=== PATIENT | female | born 1940 | race Caucasian/White ===

== ENCOUNTER → 2016-06-03 | Outpatient (CLI) | payer OTHER ==
--- NOTE | 2016-06-03 10:12 | MA ---
Diagnostic Digital Mammogram With iCAD Analysis Clinical Indications: Patient has a history of left breast cancer treated with lumpectomy. Her taniya r was diagnosed with breast cancer in her 40s. The patient has had a benign right breast biopsy. Technique: Standard cephalocaudal projections are obtained. Digital breast tomosynthesis was perform ed in the MLO projection with reconstruction at 1.0 mm slice thickness and composite MLO views recon structed. This examination is processed by the iCAD computer aided detection system. Comparison: April 2015, February 2014, January 2013, December 2011, December 2010, December 0, December 2008. Breast density: Type C: Heterogeneously dense. Findings: CAD was reviewed. Asymmetry at the left breast lumpectomy site is stable. No masses, suspi cious calcifications or secondary signs of malignancy are seen. There has been no significant change in the appearance of either breast. Impression: Benign post lumpectomy mammography, BI-RADS 2. Recommendation: Routine mammographic screening in one year as long as physical examination is negati ve in this patient with heterogeneously dense breast parenchyma. [facility] will send a result letter to the patient. Negative mammography should not preclude additional workup of a clinically suspicious finding. The patient's information is entered into a reminder system with a target due date for her next mamm ogram.
== END ==
LOC: FIMAGING 09:21
DX: R92.8 Other abnormal and inconclusive findings on diagnostic imaging of breast (principal); Z85.3 Personal history of malignant neoplasm of breast; Z80.3 Family history of malignant neoplasm of breast
CPT/HCPCS: G0204; G0279

== ENCOUNTER → 2017-01-25 | Outpatient (CLI) | payer OTHER | LOC: FCPNEURO 20:00 | PROVIDERS: ATTEND Student in an Organized Health Care Education/Training Program | DX: G47.33 Obstructive sleep apnea (adult) (pediatric) (principal) ==

== ENCOUNTER → 2017-09-07 | Outpatient (CLI) | payer OTHER | LOC: FIMAGING 15:49 | PROVIDERS: ATTEND Family Medicine | DX: Z12.31 Encounter for screening mammogram for malignant neoplasm of breast (principal); Z85.3 Personal history of malignant neoplasm of breast; Z80.3 Family history of malignant neoplasm of breast ==

== ENCOUNTER 2017-09-18 14:39 | Emergency (ER) | payer OTHER ==
--- NOTE | 2017-09-18 15:13 | EDPHY ---
H & P Stated Complaint: MECHANICAL FALL, - LOC, SCALP AND NOSE LAC Time Seen by Provider: 09/18/17 15:01 HPI/ROS: CHIEF COMPLAINT: Fall HISTORY OF PRESENT ILLNESS: Patient is a 76-year-old female who states that she missed a step and fell hitting her left forehead on a car. She denies neck or back pain. She denies loss of consciousness. She denies syncope or chest pain or shortness of breath or palpitations. She has a laceration to her left forehead and the bridge of her nose. She also has a history of cervical spine fusion. REVIEW OF SYSTEMS: Constitutional: denies: chills, fever, recent illness, recent injury EENTM: denies: blurred vision, double vision, nose congestion Respiratory: denies: cough, shortness of breath Cardiac: denies: chest pain, irregular heart rate, lightheadedness, palpitations Gastrointestinal/Abdominal: denies: abdominal pain, diarrhea, nausea, vomiting, blood streaked stools Genitourinary: denies: dysuria, frequency, hematuria, pain Musculoskeletal: denies: joint pain, muscle pain Skin: See HPI Neurological: denies: headache, numbness, paresthesia, tingling, dizziness, weakness Hematologic/Lymphatic: denies: blood clots, easy bleeding, easy bruising Immunologic/allergic: denies: HIV/AIDS, transplant EXAM: GENERAL: Well-appearing, well-nourished and in no acute distress. HEAD: Forehead laceration, grossly contaminated, obvious hematoma, no crepitus or deformity. EYES: Pupils equal round and reactive to light, extraocular movements intact, sclera anicteric, conjunctiva are normal. ENT: Nasal bridge laceration less than 1 cm, TMs normal, nares patent, oropharynx clear without exudates. Moist mucous membranes. NECK: No tenderness, Normal range of motion, supple without lymphadenopathy or JVD. LUNGS: Breath sounds clear to auscultation bilaterally and equal. No wheezes rales or rhonchi. HEART: Regular rate and rhythm without murmurs, rubs or gallops. ABDOMEN: Soft, nontender, normoactive bowel sounds. No guarding, no rebound. No masses appreciated. BACK: No CVA tenderness, no spinal tenderness, step-offs or deformities EXTREMITIES: Normal range of motion, no pitting or edema. No clubbing or cyanosis. NEUROLOGICAL: Cranial nerves II through XII grossly intact. Normal speech, normal gait. 5/5 strength, normal movement in all extremities, normal sensation PSYCH: Normal mood, normal affect. SKIN: 3 cm gaping dirty laceration to left forehead Source: Patient Exam Limitations: No limitations - Personal History Current Tetanus Diphtheria and Acellular Pertussis (TDAP): Yes Tetanus Vaccine Date: 2013 - Medical/Surgical History Hx Asthma: No Hx Chronic Respiratory Disease: No Hx Diabetes: No Hx Cardiac Disease: No Hx Renal Disease: No Hx Cirrhosis: No Hx Alcoholism: No Hx HIV/AIDS: No Hx Splenectomy or Spleen Trauma: No Other PMH: orthopedic surgeries, HTN, BREAST CA. L LUMPECTOMY - Family History Significant Family History: No pertinent family hx - Social History Smoking Status: Never smoked Alcohol Use: Sober Drug Use: None Constitutional: Initial Vital Signs Temperature (C) 37.2 C 09/18/17 14:44 Heart Rate 72 09/18/17 14:44 Respiratory Rate 16 09/18/17 14:44 Blood Pressure 178/81 H 09/18/17 14:44 O2 Sat (%) 95 09/18/17 14:44 O2 Delivery Mode Room Air Allergies/Adverse Reactions: No Allergies [NKDA] Allergy (Verified 07/11/09 12:37) bone cement Allergy (Uncoded 09/18/17 14:42) Home Medications: Medication Instructions Recorded Herbals/Supplements -Info Only 1 ea PO DAILY 02/06/15 Atenolol 09/18/17 Lexapro 09/18/17 Lisinopril 09/18/17 Medical Decision Making - Diagnostics Imaging: Discussed imaging studies w/ poly area supervisor Radiologist Procedures: Procedure: Laceration repair. Verbal consent was obtained from the patient. The 3 cm left forehead laceration was anesthetized with 1% lidocaine with epi and bicarbonate locally infiltrated. The wound was irrigated copiously according to protocol, draped and explored to its base. It was approximately 1/2 cm deep. There were no deep structures involved. No tendon, nerve, or vascular injury was identified when explored through full range of motion. Gross contamination was identified prior but not after irrigation. The wound was repaired with a single subcutaneous suture 5.0 Vicryl as well as 6 cutaneous interrupted sutures 6.0 Prolene. The wound repair was moderately complex with multiple layer closure. The procedure was performed by myself. A dressing was then placed with sterile gauze and bacitracin. Procedure: Laceration repair. Verbal consent was obtained from the patient. The 1 cm nasal bridge laceration was anesthetized with 1% lidocaine with epi and bicarbonate locally infiltrated. The wound was irrigated copiously according to protocol, draped and explored to its base. It was approximately 1/2 cm deep. There were no deep structures involved. No tendon, nerve, or vascular injury was identified when explored through full range of motion. No foreign body was identified. The wound was repaired with 6.0 Prolene, a single suture. The wound repair was simple without wound margin revisement or multiple flap alignment. The procedure was performed by myself. A dressing was then placed with sterile gauze and bacitracin. ED Course/Re-evaluation: Head CT ordered in this adult patient for trauma for the following indication: Age and surgical history Patient tolerated wound repair well. She is currently asymptomatic. She is eager to go home. She declines further workup or testing. She is reassured with the CT results. Differential Diagnosis: Partial list of the Differential diagnosis considered include but were not limited to; laceration, head injury, fracture and although unlikely based on the history and physical exam, I also considered syncope, fracture, intracranial. I discussed these differential diagnoses and the plan with the patient as well as the usual and expected course. The patient understands that the diagnosis is provisional and that in medicine we are not always correct and that further workup is often warranted. Usual and customary warnings were given. All of the patient's questions were answered. The patient was instructed to return to the emergency department should the symptoms at all worsen or return, otherwise to followup with the physician as we discussed. Departure - Departure Disposition: Home, Routine, Self-Care Clinical Impression: Facial laceration Qualifiers: Encounter type: initial encounter Qualified Code(s): S01.81XA - Laceration without foreign body of other part of head, initial encounter Condition: Fair Instructions: Laceration (ED) Additional Instructions: Have your stitches removed in 7 days. Referrals: NONE *PRIMARY CARE P,. [Primary Care Provider] - As per Instructions
[2017-09-18 16:41] VITALS: BP 136/77
== END 2017-09-18 16:38 | disposition home or self-care (01) ==
PROC: 0HQ1XZZ Repair Face Skin, External Approach (ICD-10-PCS; principal; 2017-09-18)
PROC: 09QKXZZ Repair Nasal Mucosa and Soft Tissue, External Approach (ICD-10-PCS; 2017-09-18)
DX: S01.21XA Laceration without foreign body of nose, initial encounter (principal); I10 Essential (primary) hypertension; S01.81XA Laceration without foreign body of other part of head, initial encounter; Z85.3 Personal history of malignant neoplasm of breast; W10.8XXA Fall (on) (from) other stairs and steps, initial encounter; Y99.8 Other external cause status

== ENCOUNTER → 2017-09-25 | Outpatient (CLI) | payer OTHER | LOC: FIMAGING 09:09 | PROVIDERS: ATTEND Family Medicine | DX: K76.89 Other specified diseases of liver (principal); I70.0 Atherosclerosis of aorta ==

== ENCOUNTER → 2017-10-07 | Outpatient (CLI) | payer OTHER ==
[~2017-10-07] MED LIST: BUPIVACAINE 0.5% 10 ML SDV ONE; LIDOCAINE 1% 300 MG/30 ML SDV ONE; THROMBIN (BOVINE) 5,000 UNIT VIAL TP ONE
== END ==
LOC: FIMAGING 07:17
PROVIDERS: ATTEND Family Medicine
PROC: 0HBU3ZX Excision of Left Breast, Percutaneous Approach, Diagnostic (ICD-10-PCS; principal; 2017-10-07)
DX: N64.89 Other specified disorders of breast (principal)

== ENCOUNTER → 2018-03-20 | Outpatient (CLI) | payer OTHER | LOC: FIMAGING 09:45 | PROVIDERS: ATTEND Family Medicine | DX: M23.91 Unspecified internal derangement of right knee (principal); M22.41 Chondromalacia patellae, right knee ==

== ENCOUNTER → 2018-04-05 | Outpatient (CLI) | payer OTHER ==
[~2018-04-05] MED LIST changes: -BUPIVACAINE 0.5% 10 ML SDV ONE; +IOPAMIDOL (ISOVUE-300) 100 ML BTL ONE; -LIDOCAINE 1% 300 MG/30 ML SDV ONE; -THROMBIN (BOVINE) 5,000 UNIT VIAL TP ONE
== END ==
LOC: FIMAGING 09:07
PROVIDERS: ATTEND Family Medicine
DX: D12.0 Benign neoplasm of cecum (principal); R93.41 Abnormal radiologic findings on diagnostic imaging of renal pelvis, ureter, or bladder; R11.10 Vomiting, unspecified
CPT/HCPCS: 71260; 74177; Q9967; 82565-PO

== ENCOUNTER → 2018-04-09 | Outpatient (CLI) | payer OTHER | LOC: FIMAGING 11:52 | PROVIDERS: ATTEND Family Medicine | DX: R93.89 Abnormal findings on diagnostic imaging of other specified body structures (principal); N32.9 Bladder disorder, unspecified; Z80.41 Family history of malignant neoplasm of ovary ==

== ENCOUNTER 2018-05-08 09:48 | Inpatient (IN) | payer OTHER ==
--- NOTE | 2018-05-08 10:13 | EDPHY ---
H & P Stated Complaint: SOB Time Seen by Provider: 05/08/18 10:00 HPI/ROS: CHIEF COMPLAINT: Shortness of breath HISTORY OF PRESENT ILLNESS: The patient is a 77-year-old female he denies any history of cardiac or pulmonary disease other than hypertension. She comes to the emergency department complaining of shortness of breath increasing over the last 3 days. She does also noticed some swelling in both legs. No fever or cough. No runny nose or sore throat. No chest pain. No recent travel. She was saturating 75% on room air triage. Severity: Moderate Modifying factors: None REVIEW OF SYSTEMS: Constitutional: denies: chills, fever, recent illness, recent injury EENTM: denies: blurred vision, double vision, nose congestion Respiratory: See HPI Cardiac: denies: chest pain, irregular heart rate, lightheadedness, palpitations Gastrointestinal/Abdominal: denies: abdominal pain, diarrhea, nausea, vomiting, blood streaked stools Genitourinary: denies: dysuria, frequency, hematuria, pain Musculoskeletal: denies: joint pain, muscle pain Skin: denies: lesions, rash, jaundice, bruising Neurological: denies: headache, numbness, paresthesia, tingling, dizziness, weakness Hematologic/Lymphatic: denies: blood clots, easy bleeding, easy bruising Immunologic/allergic: denies: HIV/AIDS, transplant 10 systems reviewed and negative except as noted EXAM: GENERAL: Well-appearing, well-nourished and in no acute distress. HEAD: Atraumatic, normocephalic. EYES: Pupils equal round and reactive to light, extraocular movements intact, sclera anicteric, conjunctiva are normal. ENT: TMs normal, nares patent, oropharynx clear without exudates. Moist mucous membranes. NECK: Normal range of motion, supple without lymphadenopathy or JVD. LUNGS: Bilateral lower lobe rhonchi HEART: Regular rate and rhythm without murmurs, rubs or gallops. ABDOMEN: Soft, nontender, normoactive bowel sounds. No guarding, no rebound. No masses appreciated. BACK: No CVA tenderness, no spinal tenderness, step-offs or deformities EXTREMITIES: 2+ pitting edema bilateral lower extremities, NEUROLOGICAL: Cranial nerves II through XII grossly intact. Normal speech, normal gait. 5/5 strength, normal movement in all extremities, normal sensation , normal reflexes PSYCH: Normal mood, normal affect. SKIN: Warm, dry, normal turgor, no visible rashes or lesions. Source: Patient Exam Limitations: No limitations - Personal History Current Tetanus/Diphtheria Vaccine: Yes Tetanus Vaccine Date: 2013 - Medical/Surgical History Hx Asthma: No Hx Chronic Respiratory Disease: No Hx Diabetes: No Hx Cardiac Disease: No Hx Renal Disease: No Hx Cirrhosis: No Hx Alcoholism: No Hx HIV/AIDS: No Hx Splenectomy or Spleen Trauma: No Other PMH: orthopedic surgeries, HTN, BREAST CA. L LUMPECTOMY - Family History Significant Family History: No pertinent family hx - Social History Smoking Status: Never smoked Alcohol Use: None Constitutional: Initial Vital Signs Temperature (C) 36.3 C 05/08/18 09:51 Heart Rate 78 05/08/18 09:51 Respiratory Rate 18 05/08/18 09:51 Blood Pressure 137/58 H 05/08/18 09:51 O2 Sat (%) 75 L 05/08/18 09:51 O2 Delivery Mode Room Air O2 (L/minute) 4 Allergies/Adverse Reactions: ibuprofen [From Motrin] Allergy (Verified 05/08/18 11:25) bone cement Allergy (Uncoded 09/18/17 14:42) Home Medications: Medication Instructions Recorded Acetaminophen/ASA/Caffeine 1 each PO DAILY PRN 05/08/18 [Excedrin Tablet (*)] Atenolol [Tenormin 25 mg (*)] 25 mg PO DAILY 05/08/18 Escitalopram Oxalate [Lexapro] 10 mg PO DAILY 05/08/18 Fluticasone Nasal [Flonase Nasal 1 sprays NASAL DAILY PRN 05/08/18 [place] (RX)] Herbals/Supplements -Info Only 1 ea PO DAILY 05/08/18 Hydrocodone/APAP 5/325 [[place] 1 - 2 tab PO BID PRN 05/08/18 5/325 (*)] Ibandronate Sodium [Boniva] 150 mg PO Q30D 05/08/18 Lisinopril [Zestril 10 mg (*)] 10 mg PO DAILY 05/08/18 NIFEdipine ER [Adalat CC 30 mg (*)] 30 mg PO DAILY 05/08/18 Medical Decision Making - Diagnostics EKG Interpretation: An EKG obtained and was read and documented in trace view. Please see trace view for full reading and report. Sinus rhythm, no acute ischemic changes Imaging: Discussed imaging studies w/ body recall instructor Radiologist ED Course/Re-evaluation: The patient appears to be fluid overloaded. I do not think that she has an infection and therefore will not treat with fluids even though she has an elevated lactate. I will treat with Lasix for now. I have discussed this with Dr. Ojeda who agrees with this plan. Will admit to the PCU. Differential Diagnosis: Partial list of the Differential diagnosis considered include but were not limited to; pleural effusions, pulmonary edema, and although unlikely based on the history and physical exam, I also considered acute coronary disease, pneumonia, PE, dissection. - Data Points Laboratory Results: Laboratory Results 05/08/18 10:16 05/08/18 10:16 Microbiology Results: MICROBIOLOGY 05/08/18 10:16 Blood Blood Culture - Preliminary Medications Given: Hydrocodone Bitart/Acetaminophen ([place] 5/325) 1 - 2 tab PO BID PRN; Protocol PRN Reason: Pain, Moderate Stop: 05/18/18 12:56 Last Admin: 05/10/18 20:07 Dose: 2 tab Enoxaparin Sodium (Lovenox) 40 mg SC DAILY MADHU Stop: 11/05/18 10:29 Last Admin: 05/09/18 11:27 Dose: 40 mg Escitalopram Oxalate (Lexapro) 10 mg PO DAILY MADHU Stop: 11/05/18 08:59 Last Admin: 05/10/18 09:39 Dose: 10 mg Ferrous Sulfate (Ferrous Sulfate) 325 mg PO DAILY MADHU Stop: 11/05/18 10:29 Last Admin: 05/10/18 09:38 Dose: 325 mg Fluticasone Propionate (Flonase Nasal [place]) 1 sprays EACHNARE DAILY PRN PRN Reason: ALLERGIES Stop: 11/04/18 12:56 Last Admin: 05/09/18 12:41 Dose: 1 sprays Furosemide (Lasix Injection) 40 mg IVP DAILY MADHU Stop: 11/06/18 08:59 Last Admin: 05/10/18 09:37 Dose: 40 mg Lisinopril (Zestril) 10 mg PO DAILY MADHU Stop: 11/05/18 08:59 Last Admin: 05/10/18 09:38 Dose: 10 mg Metoprolol Tartrate (Lopressor) 12.5 mg PO BID MADHU Stop: 11/04/18 20:59 Last Admin: 05/10/18 20:04 Dose: 12.5 mg Ondansetron HCl (Zofran) 4 mg IVP Q4HRS PRN PRN Reason: Nausea/Vomiting, Can't Take PO Stop: 11/05/18 12:43 Last Admin: 05/09/18 12:52 Dose: 4 mg Pantoprazole Sodium (Protonix) 40 mg PO DAILY [facility] Stop: 11/06/18 09:14 Last Admin: 05/10/18 09:42 Dose: 40 mg Discontinued Medications Aspirin (Aspirin) 325 mg PO ONCE ONE Stop: 05/08/18 12:42 Last Admin: 05/08/18 13:47 Dose: 325 mg Diazepam (Valium) 5 mg PO ONCALL ONE Stop: 05/10/18 06:01 Last Admin: 05/10/18 15:55 Dose: Not Given Diphenhydramine HCl (Benadryl) 25 mg PO ONCALL ONE Stop: 05/10/18 06:01 Last Admin: 05/10/18 15:55 Dose: Not Given Furosemide (Lasix Injection) 40 mg IVP EDNOW ONE Stop: 05/08/18 10:44 Last Admin: 05/08/18 10:47 Dose: 40 mg Furosemide (Lasix Injection) 40 mg IVP BID [facility] Stop: 11/05/18 08:59 Last Admin: 05/09/18 09:10 Dose: 40 mg Potassium Chloride (Klor-Con) 10 - 40 meq PO ONCE ONE PRN Reason: Protocol Stop: 05/10/18 09:24 Last Admin: 05/10/18 09:37 Dose: 10 meq Point of Care Test Results: Chemistry 05/08/18 10:19 POC Troponin I 0.01 ng/mL ng/mL (0.00-0.08) Departure - Departure Disposition: [facility] Acute Clinical Impression: Pleural effusion, Lower extremity edema Condition: Fair
--- NOTE | 2018-05-08 10:14 | CPEKG ---
Test Reason : OPEN Blood Pressure : / mmHG Vent. Rate : 076 BPM Atrial Rate : 076 BPM P-R Int : 109 ms QRS Dur : 082 ms QT Int : 440 ms P-R-T Axes : 065 054 048 degrees QTc Int : 495 ms Sinus rhythm Confirmed by Dae Pineda ([id number]) on 05/08/2018 10:13:44 AM Referred By: Confirmed By:Dae Pineda
[2018-05-08 10:31] LABS: PLATELET COUNT 519 10^3/uL (150-400)
[2018-05-08 10:41] LABS: INR 1.04 (0.83-1.16); PROTIME(PATIENT) 13.8 SEC (12.0-15.0)
[2018-05-08] MEDS ORDERED: FUROSEMIDE 40 MG/4 ML VIAL IVP ONE (10:43)
[2018-05-08] MEDS ORDERED: IOPAMIDOL (ISOVUE 370) 100 ML BTL IV ONE (10:55)
[2018-05-08] MEDS ORDERED: ASPIRIN 325 MG TAB PO ONE (12:41)
[2018-05-08] MEDS ORDERED: PROTOCOL POTASSIUM 1 DOSE MISC PRN (12:43)
--- NOTE | 2018-05-08 13:09 | PDGENHP ---
History and Physical - Chief Complaint SOB - History of Present Illness 77 yo female with h/o hypertension, depression, and orthopedic issues presents with 2-3 days of worsening SOB and BRANNON. She noticed this a few days ago going up stairs. She vaguely endorses orthopnea, denies PND. Thinks she may have some mild lower extremity. She denies any history of cardiac or pulmonary issues. No recent travel or surgery. Denies cough, fevers or infectious symptoms. She has recently been evaluated by her PCP for abdominal discomfort, including nausea and vomiting. She is a lifetime non-smoker. Her father had a SD in his 50's. She is not diabetic. In the ED, her O2 sat was 75% on room air. BNP and d dimer were elevated. CTA was negative for PE, but she has b/l pleural effusions. She was given 40 mg IV Lasix and is admitted to the hospital for further management. History Information - Allergies/Home Medication List Allergies/Adverse Reactions: ibuprofen [From Motrin] Allergy (Verified 05/08/18 11:25) bone cement Allergy (Uncoded 09/18/17 14:42) Home Medications: Acetaminophen/ASA/Caffeine [Excedrin Tablet (*)] 1 each PO DAILY PRN 05/08/18 [ Last Taken Unknown] Atenolol [Tenormin 25 mg (*)] 25 mg PO DAILY 05/08/18 [Last Taken 05/08/18] Escitalopram Oxalate [Lexapro] 10 mg PO DAILY 05/08/18 [Last Taken 05/08/18] Fluticasone Nasal [Flonase Nasal [place] (RX)] 1 sprays NASAL DAILY PRN 05/08/18 [ Last Taken Unknown] Herbals/Supplements -Info Only 1 ea PO DAILY 05/08/18 [Last Taken Unknown] Hydrocodone/APAP 5/325 [[place] 5/325 (*)] 1 - 2 tab PO BID PRN 05/08/18 [Last Taken Unknown] Ibandronate Sodium [Boniva] 150 mg PO Q30D 05/08/18 [Last Taken 04/08/18] Lisinopril [Zestril 10 mg (*)] 10 mg PO DAILY 05/08/18 [Last Taken 05/08/18] NIFEdipine ER [Adalat CC 30 mg (*)] 30 mg PO DAILY 05/08/18 [Last Taken 05/08/18 ] I have personally reviewed and updated: family history, medical history, social history, surgical history - Past Medical History hypertension Additional medical history: Depression. 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 Lives alone, independent. Review of Systems Review of Systems: ROS: 10pt was reviewed & negative except for what was stated in HPI & below Physical Exam Physical Exam: Temp Pulse Resp BP Pulse Ox 37.1 C 67 19 148/79 H 96 05/08/18 12:07 05/08/18 12:07 05/08/18 12:07 05/08/18 12:07 05/08/18 12:07 O2 (L/minute) 4 Constitutional: no apparent distress Eyes: PERRL Ears, Nose, Mouth, Throat: moist mucous membranes Cardiovascular: regular rate and rhythym, JVD Respiratory: no respiratory distress, reduced air movement, inspiratory crackles Gastrointestinal: normoactive bowel sounds, soft, non-tender abdomen Skin: warm Musculoskeletal: full muscle strength, other (1+ b/l LE edema) Neurologic: AAOx3 Psychiatric: interacting appropriately Lab Data & Imaging Review 05/08/18 10:16 05/08/18 14:57 WBC 8.41 10^3/uL (3.80-9.50) 05/08/18 10:16 RBC 3.63 10^6/uL (4.18-5.33) L 05/08/18 10:16 Hgb 9.4 g/dL (12.6-16.3) L 05/08/18 10:16 Hct 30.9 % (38.0-47.0) L 05/08/18 10:16 MCV 85.1 fL (81.5-99.8) 05/08/18 10:16 MCH 25.9 pg (27.9-34.1) L 05/08/18 10:16 MCHC 30.4 g/dL (32.4-36.7) L 05/08/18 10:16 RDW 14.5 % (11.5-15.2) 05/08/18 10:16 Plt Count 519 10^3/uL (150-400) H 05/08/18 10:16 MPV 8.9 fL (8.7-11.7) 05/08/18 10:16 Neut % (Auto) 69.7 % (39.3-74.2) 05/08/18 10:16 Lymph % (Auto) 14.0 % (15.0-45.0) L 05/08/18 10:16 [place] % (Auto) 12.1 % (4.5-13.0) 05/08/18 10:16 Eos % (Auto) 3.0 % (0.6-7.6) 05/08/18 10:16 Baso % (Auto) 0.8 % (0.3-1.7) 05/08/18 10:16 Nucleat RBC Rel Count 0.2 % (0.0-0.2) 05/08/18 10:16 Absolute Neuts (auto) 5.86 10^3/uL (1.70-6.50) 05/08/18 10:16 Absolute Lymphs (auto) 1.18 10^3/uL (1.00-3.00) 05/08/18 10:16 Absolute Monos (auto) 1.02 10^3/uL (0.30-0.80) H 05/08/18 10:16 Absolute Eos (auto) 0.25 10^3/uL (0.03-0.40) 05/08/18 10:16 Absolute Basos (auto) 0.07 10^3/uL (0.02-0.10) 05/08/18 10:16 Absolute Nucleated RBC 0.02 10^3/uL (0-0.01) H 05/08/18 10:16 Immature Gran % 0.4 % (0.0-1.1) 05/08/18 10:16 Immature Gran # 0.03 10^3/uL (0.00-0.10) 05/08/18 10:16 PT 13.8 SEC (12.0-15.0) 05/08/18 10:16 INR 1.04 (0.83-1.16) 05/08/18 10:16 APTT 24.6 SEC (23.0-38.0) 05/08/18 10:16 D-Dimer 1.57 ug/mLFEU (0.00-0.50) H 05/08/18 10:16 VBG Lactic Acid 3.9 mmol/L (0.7-2.1) H 05/08/18 10:16 Sodium 140 mEq/L (135-145) 05/08/18 10:16 Potassium 4.3 mEq/L (3.5-5.2) 05/08/18 10:16 Chloride 110 mEq/L (97-110) 05/08/18 10:16 Carbon Dioxide 19 mEq/l (22-31) L 05/08/18 10:16 Anion Gap 11 mEq/L (6-14) 05/08/18 10:16 BUN 27 mg/dL (7-23) H 05/08/18 10:16 Creatinine 0.9 mg/dL (0.6-1.0) 05/08/18 10:16 Estimated GFR > 60 05/08/18 10:16 Glucose 83 mg/dL (70-100) 05/08/18 10:16 Calcium 9.8 mg/dL (8.5-10.4) 05/08/18 10:16 POC Troponin I 0.01 ng/mL (0.00-0.08) 05/08/18 10:19 NT-Pro-B Natriuret Pep 3360 pg/mL (0-450) H 05/08/18 10:16 Procalcitonin 0.10 ng/mL (0.02-0.10) 05/08/18 10:16 Visualized and Interpreted Chest x-ray results: Yes Chest X-Ray results: other (bibasilar effusions) EKG Interpretation: Positive for: normal sinsus rhythm, T waves inversion Assessment & Plan Assessment: Acute hypoxemic respiratory failure - on 4 LPM, s/p IV Lasix for presumed acute heart failure with elevated BNP, JVD and orthopnea. Initial trop neg, but EKG abnormal with T wave inversions in anterior leads. She is afebrile, no cough, nl wbc's, PCT neg, thus doubt pna. -echo now to eval for WMA and LV function -cont IV lasix with K protocol -prn ekg for CP or change in status -trend trop -discussed with cards, likely warrants further ischemic eval (stress test vs cath, await echo and f/u trop) Acute heart failure - s/p lasix, echo pending -cont diuresis, follow I&O's, daily weights -f/u echo -check TSH Lactic acidosis - does not present with sepsis picture Normocytic anemia - prior hgb was nl -send iron studies, heme stool (outpt c-scope if pos) Full code DVT PPLX - SCD's for now, likely start Lovenox if no procedure needed (await echo and f/u trop) Dispo - admit to inpt, anticipate >48 hrs hospitalization for ongoing management of hypoxemia and acute heart failure
--- NOTE | 2018-05-08 19:49 | ECHO ---
[email or web address] [address] [address] Main: [phone] Fax: Transthoracic Echocardiogram Name: MICHELLE THAO MR#: [id number] Study Date: 05/08/2018 Study Time: 01:04 PM Date of : 1940 Age: 77 year(s) Height: 152.4 cm (60 in.) Weight: 58.97 kg (130 lb.) BSA: 1.55 m2 Gender: Female Examination: Indication: Shortness of breath Image Quality: Contrast: Requested by: Sara Wasserman BP: / Heart Rate: Rhythm: Normal sinus rhythm Indication: Shortness of breath Procedure Staff Radiation Monitor: Yovanny Cadet RDCS Reading Physician: Gold Pillai MD Requesting Provider: Conclusions: Normal size left ventricle. No LV hypertrophy. Normal global systolic LV function. EF is 63 %. Grade 1 diastolic dysfunction (abnormal relaxation). Normal size right ventricle. The left atrium is mildly dilated. The right atrium is mildly dilated. Mild mitral valve regurgitation is present. The aortic valve is tri-leaflet. There is no significant aortic valve regurgitation. The tricuspid valve appears normal. Moderate to severe tricuspid valve regurgitation. Right ventricular systolic pressure measures 80mmHg. The pulmonic valve is normal in appearance and function. No pericardial effusion. Measurements: Chambers Valvular Assessment AV/MV Valvular Assessment TV/PV Normal Normal Normal Name Value Range Name Value Range Name Value Range Ao Summer (MM): 2.4 cm (2.2 cm-3.7 AV Vmax: 1.07 m/s (1 m/s-1.7 TR Vmax: 4.33 mm/s ( - ) cm) m/s) TR PGmax: 75 mmHg ( - ) IVSd (2D): 0.8 cm (0.6 cm-1.1 AV maxP mmHg ( - ) syst. PAP: 80 mmHg ( - ) cm) LVOT Vmax: 0.93 m/s (0.7 m/s-1.1 PV Vmax: 0.81 m/s (0.6 m/s-0.9 LVDd (2D): 4.1 cm (3.9 cm-5.3 m/s) m/s) cm) MV E Vmax: 1.05 m/s ( - ) PV PGmax: 3 mmHg ( - ) LVDs (2D): 2.7 cm (2.1 cm-4 MV A Vmax: 0.54 m/s ( - ) cm) MV E/A: 1.94 ( - ) LVPWd (2D): 0.9 cm ( - ) Patient: MICHELLE THAO Study Date: 05/08/2018 Page 1 of 2 01:04 PM LVEF (2D): 63 (>=54 %) Continued Measurements: Chambers Valvular Assessment AV/MV Valvular Assessment TV/PV Name Value Name Value Name Value LADs Lon.4 cm MV E' Septal: 0.05 m/s CVP (est.): 5 mmHg LA Area: 20.7 cm2 MV E/E' Septal: 22.00 LA Volume: 60 ml MV E/E' Lateral: 14.70 LA Volume Index: 38.7 ml/m2 Findings: Left Ventricle: Normal size left ventricle. No LV hypertrophy. Normal global systolic LV function. EF is 63 %. No regional wall motion abnormality. Grade 1 diastolic dysfunction (abnormal relaxation). Right Ventricle: Normal size right ventricle. Normal RV function. Left Atrium: The left atrium is mildly dilated. Right Atrium: The right atrium is mildly dilated. Mitral Valve: The mitral valve is normal in appearance. Mild mitral valve regurgitation is present. Aortic Valve: The aortic valve is tri-leaflet. There is no significant aortic valve regurgitation. Tricuspid Valve: The tricuspid valve appears normal. Moderate to severe tricuspid valve regurgitation. The pulmonary artery pressure is severely increased. Right ventricular systolic pressure measures 80mmHg. Pulmonic Valve: The pulmonic valve is normal in appearance and function. Aorta: The aorta is normal. Pericardium: No pericardial effusion. (No Signature Object) Patient: MICHELLE HTAO Study Date: 05/08/2018 Page 2 of 2 01:04 PM [id number]
[2018-05-08] MEDS: HYDROCODONE/APAP 5/325 TAB PO PRN (21:14)
[2018-05-08] MEDS: METOPROLOL TARTRATE 25 MG TAB PO SCH (21:17)
--- NOTE | 2018-05-09 07:18 | HOSPPROG ---
Hospitalist Progress Note Assessment/Plan: Acute hypoxemic respiratory failure - 4 LPM. Echo reviewed: RVSP 80 with mod- severe TR and grade 1 Parsons dysfunction. Initial trop neg, but EKG abnormal with T wave inversions in anterior leads. She is afebrile, no cough, nl wbc's, PCT neg, thus doubt pna. -cont diuresis as below with K protocol -wean O2 as able Right heart failure in setting of severe pulmonary hypertension and b/l pleural effusions - net neg 2 L overnight. CTA neg for PE. -cont IV Lasix, increase to 40 mg IV bid -follow I&O's, daily weights -cardiology consult -check LFT's, HIV, JJ for further evaluation of pulm htn, likely warrants heart cath (discussed with dr. stephens) Mod-severe TR - in setting of pulm htn and heart failure Lactic acidosis - does not present with sepsis picture, lactate down to 2.2 on repeat Normocytic anemia - prior hgb was nl, serum Fe and %sat low -start oral iron, outpt c-scope as below Colon polyp - seen on recent outpt CT -outpt colonoscopy is planned Full code DVT PPLX - Lovenox today, hold in am for possible cardiac intervention Dispo - cont inpt Subjective: Pt feels better. Breathing is improved. Denies CP. No cough or fevers. Taking po well. Objective: Vital Signs Temp Pulse Resp BP Pulse Ox 36.6 C 71 20 126/74 H 92 05/09/18 03:47 05/09/18 03:47 05/09/18 03:47 05/09/18 03:47 05/09/18 03:47 Laboratory Results 05/09/18 03:44 05/09/18 03:44 05/08/18 05/09/18 05/10/18 05:59 05:59 05:59 Intake Total 750 Output Total 2550 Balance -1800 PT 13.8 SEC (12.0-15.0) 05/08/18 10:16 INR 1.04 (0.83-1.16) 05/08/18 10:16 - Physical Exam Constitutional: no apparent distress Eyes: PERRL Ears, Nose, Mouth, Throat: moist mucous membranes Cardiovascular: regular rate and rhythym Respiratory: no respiratory distress, reduced air movement, inspiratory crackles Gastrointestinal: normoactive bowel sounds, soft, non-tender abdomen Skin: warm Musculoskeletal: full muscle strength Neurologic: AAOx3 Psychiatric: interacting appropriately ICD10 Worksheet Patient Problems: Problems Problem Status Onset Lower extremity edema Acute Pleural effusion Acute Arthrodesis status Acute Cervical radiculitis Acute Depression Acute Facial laceration Acute Hypertension Acute Neck pain Acute Tremor Acute Unsteady gait Acute
[2018-05-09] MEDS ORDERED: FUROSEMIDE 40 MG/4 ML VIAL IVP SCH ×2 (09:00)
[2018-05-09] MEDS: METOPROLOL TARTRATE 25 MG TAB PO SCH ×2 (09:10→20:13)
[2018-05-09] MEDS: ESCITALOPRAM OXALATE 10 MG TAB PO SCH (09:10)
[2018-05-09] MEDS: LISINOPRIL 10 MG TAB PO SCH (09:10)
--- NOTE | 2018-05-09 09:23 | PDMN ---
Medical Necessity Medical necessity: Pt meets IP criteria as of 05/08/2018 per and MCG M-190 ( Heart Failure); est los > 2 mn for ongoing tx and management of acute heart failure with acute hypoxemic respiratory failure and EKG changes; requiring IV diuretics, new oxygen demand, cardiology consultation and further workup to r/o ischemia.
[2018-05-09] MEDS: FERROUS SULFATE 325 MG TAB PO SCH (11:27)
[2018-05-09] MEDS: ENOXAPARIN 40 MG/0.4 ML SYR SC SCH (11:27)
--- NOTE | 2018-05-09 11:45 | PDCARCONS ---
Cardiology Consult Reason for Consult: New onset congestive heart failure, evidence of pulmonary hypertension on echocardiography. Chief Complaint: Dyspnea, fatigue. Requesting Physician: Dr. Sara Wasserman. History of Present Illness: This is a pleasant 77-year-old female seen in consultation on the progressive care unit. 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 At her baseline she is fairly healthy. She has no history of either cardiac or pulmonary disease. She states that she generally feels well and lives independently caring for herself. She has had a difficult time over the last 2 or 3 months with symptoms of chronic nausea and occasional vomiting. This has been worked up with no clear cut etiology identified as of yet. She also states that over the last 48-72 hours she has developed symptoms of progressive exertional dyspnea, lower extremity edema and fatigue. This has not been associated with chest discomfort, orthopnea or PND. She also denies fever, chills and sweats. She gives no history of a cough. Because of these symptoms she came to the emergency department yesterday. On arrival she was hemodynamically stable. She was profoundly hypoxemic on arrival with sats of 75 % on room air. Her chest x-ray indicated bilateral small to moderate sized pleural effusions. Because of an elevated D-dimer she had a CTA of the chest. I reviewed this personally with the radiologist. Again noted were moderate sized bilateral pleural effusions, evidence of enlarged main and branch pulmonary arteries and a generous right heart. There was no indication of PE. Overnight she has received IV diuretics. She states that she feels much better. She notes that her lower extremity swelling has resolved. She is much more comfortable with respect to her respiratory status following diuretic therapy and the administration of oxygen. In talking to her about this, she has not had a cough in the past. She gives no history of DVT or PE. She is a lifelong nonsmoker with no history of pulmonary disease. She does have obstructive sleep apnea which she states is mild. She uses her CPAP only occasionally as it is uncomfortable. She has no history of lupus or scleroderma. She gives no history of weight loss. She has described a sensation of nausea and vomiting over the last 2-3 months. History Information - Allergies/Home Medication List Allergies/Adverse Reactions: ibuprofen [From Motrin] Allergy (Verified 05/08/18 11:25) bone cement Allergy (Uncoded 09/18/17 14:42) Home Medications: Acetaminophen/ASA/Caffeine [Excedrin Tablet (*)] 1 each PO DAILY PRN 05/08/18 [ Last Taken Unknown] Atenolol [Tenormin 25 mg (*)] 25 mg PO DAILY 05/08/18 [Last Taken 05/08/18] Escitalopram Oxalate [Lexapro] 10 mg PO DAILY 05/08/18 [Last Taken 05/08/18] Fluticasone Nasal [Flonase Nasal [place] (RX)] 1 sprays NASAL DAILY PRN 05/08/18 [ Last Taken Unknown] Herbals/Supplements -Info Only 1 ea PO DAILY 05/08/18 [Last Taken Unknown] Hydrocodone/APAP 5/325 [[place] 5/325 (*)] 1 - 2 tab PO BID PRN 05/08/18 [Last Taken Unknown] Ibandronate Sodium [Boniva] 150 mg PO Q30D 05/08/18 [Last Taken 04/08/18] Lisinopril [Zestril 10 mg (*)] 10 mg PO DAILY 05/08/18 [Last Taken 05/08/18] NIFEdipine ER [Adalat CC 30 mg (*)] 30 mg PO DAILY 05/08/18 [Last Taken 05/08/18 ] Past Medical History: Breast cancer. This was diagnosed about 10 years ago. She is status post a left-sided lumpectomy with placement of radioactive seeds. Osteoarthritis. She has had multiple orthopedic surgeries over the past many years. Systemic hypertension. - Surgical History Additional surgical history: Lumpectomy for breast cancer, synovial cyst resection, C2-T2 spinal fusion, 6 previous shoulder surgeries, knee arthroscopy. - Family History Positive for: non-pertinent - Social History Smoking Status: Never smoked Alcohol Use: Other (She used to drink fairly have Ali) Drug Use: None Additional social history: She is . She is originally from [place]. She has 2 children that live in the local area here. She lives independently. 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 Physical Exam Physical Exam: Temp Pulse Resp BP Pulse Ox 36.4 C 68 13 123/63 H 94 05/09/18 11:19 05/09/18 11:19 05/09/18 11:19 05/09/18 11:19 05/09/18 11:19 O2 (L/minute) 4 Constitutional: no apparent distress, not in pain, other (She is thin and chronically ill in appearance) Eyes: PERRL, anicteric sclera, EOMI Ears, Nose, Mouth, Throat: moist mucous membranes, hearing normal, ears appear normal, no oral mucosal ulcers Cardiovascular: regular rate and rhythym, no murmur, rub, or gallop, edema, other (She has trace bilateral lower extremity edema) Peripheral Pulses: 2+: carotid (R), carotid (L) Respiratory: no respiratory distress, no rales or rhonchi, other (Decreased breath sounds are noted in both bases) Gastrointestinal: normoactive bowel sounds, soft, non-tender abdomen, no palpable masses Genitourinary: no bladder fullness, no bladder tenderness Skin: warm, normal color, no rashes or abrasions, no fluctuance, no induration, No mottled Musculoskeletal: full muscle strength, no muscle tenderness, normal joint ROM, no joint effusions Psychiatric: interacting appropriately, not anxious, not encephalopathic, thought process linear Lymph, Heme, Immunologic: no cervical LAD, no supraclavicular LAD Lab and Imaging 05/09/18 03:44 05/09/18 03:44 WBC 8.41 10^3/uL (3.80-9.50) 05/08/18 10:16 RBC 3.63 10^6/uL (4.18-5.33) L 05/08/18 10:16 Hgb 8.9 g/dL (12.6-16.3) L 05/09/18 03:44 Hct 29.4 % (38.0-47.0) L 05/09/18 03:44 MCV 85.1 fL (81.5-99.8) 05/08/18 10:16 MCH 25.9 pg (27.9-34.1) L 05/08/18 10:16 MCHC 30.4 g/dL (32.4-36.7) L 05/08/18 10:16 RDW 14.5 % (11.5-15.2) 05/08/18 10:16 Plt Count 519 10^3/uL (150-400) H 05/08/18 10:16 MPV 8.9 fL (8.7-11.7) 05/08/18 10:16 Neut % (Auto) 69.7 % (39.3-74.2) 05/08/18 10:16 Lymph % (Auto) 14.0 % (15.0-45.0) L 05/08/18 10:16 [place] % (Auto) 12.1 % (4.5-13.0) 05/08/18 10:16 Eos % (Auto) 3.0 % (0.6-7.6) 05/08/18 10:16 Baso % (Auto) 0.8 % (0.3-1.7) 05/08/18 10:16 Nucleat RBC Rel Count 0.2 % (0.0-0.2) 05/08/18 10:16 Absolute Neuts (auto) 5.86 10^3/uL (1.70-6.50) 05/08/18 10:16 Absolute Lymphs (auto) 1.18 10^3/uL (1.00-3.00) 05/08/18 10:16 Absolute Monos (auto) 1.02 10^3/uL (0.30-0.80) H 05/08/18 10:16 Absolute Eos (auto) 0.25 10^3/uL (0.03-0.40) 05/08/18 10:16 Absolute Basos (auto) 0.07 10^3/uL (0.02-0.10) 05/08/18 10:16 Absolute Nucleated RBC 0.02 10^3/uL (0-0.01) H 05/08/18 10:16 Immature Gran % 0.4 % (0.0-1.1) 05/08/18 10:16 Immature Gran # 0.03 10^3/uL (0.00-0.10) 05/08/18 10:16 PT 13.8 SEC (12.0-15.0) 05/08/18 10:16 INR 1.04 (0.83-1.16) 05/08/18 10:16 APTT 24.6 SEC (23.0-38.0) 05/08/18 10:16 D-Dimer 1.57 ug/mLFEU (0.00-0.50) H 05/08/18 10:16 VBG Lactic Acid 2.2 mmol/L (0.7-2.1) H 05/08/18 14:57 Sodium 140 mEq/L (135-145) 05/09/18 03:44 Potassium 4.3 mEq/L (3.5-5.2) 05/09/18 03:44 Chloride 109 mEq/L (97-110) 05/09/18 03:44 Carbon Dioxide 24 mEq/l (22-31) 05/09/18 03:44 Anion Gap 7 mEq/L (6-14) 05/09/18 03:44 BUN 25 mg/dL (7-23) H 05/09/18 03:44 Creatinine 0.8 mg/dL (0.6-1.0) 05/09/18 03:44 Estimated GFR > 60 05/09/18 03:44 Glucose 70 mg/dL (70-100) 05/09/18 03:44 Calcium 8.8 mg/dL (8.5-10.4) 05/09/18 03:44 Iron 18.0 mcg/dL (37.0-170.0) L 05/08/18 10:16 TIBC 434 ug/dL (260-490) 05/08/18 10:16 Iron Saturation 4 % (20-55) L 05/08/18 10:16 Ferritin 13.4 ng/mL (6.2-264.0) 05/08/18 10:16 Total Bilirubin 0.4 mg/dL (0.1-1.4) 05/09/18 08:41 Conjugated Bilirubin 0.3 mg/dL (0.0-0.5) 05/09/18 08:41 Unconjugated Bilirubin 0.1 mg/dL (0.0-1.1) 05/09/18 08:41 AST 62 IU/L (14-46) H 05/09/18 08:41 ALT 87 IU/L (9-52) H 05/09/18 08:41 Alkaline Phosphatase 137 IU/L (38-126) H 05/09/18 08:41 POC Troponin I 0.01 ng/mL (0.00-0.08) 05/08/18 10:19 Troponin I < 0.012 ng/mL (0.000-0.034) 05/08/18 21:22 NT-Pro-B Natriuret Pep 3360 pg/mL (0-450) H 05/08/18 10:16 Total Protein 5.3 g/dL (6.3-8.2) L 05/09/18 08:41 Albumin 3.2 g/dL (3.5-5.0) L 05/09/18 08:41 Triglycerides 104 mg/dL (35-135) 05/09/18 03:44 Cholesterol 117 mg/dL (140-220) L 05/09/18 03:44 Cholesterol Risk Factr 0.4 (0.2-1.0) 05/09/18 03:44 LDL Cholesterol, Calc 40 mg/dL (80-100) L 05/09/18 03:44 LDL Risk Factor 0.4 (0.2-1.0) 05/09/18 03:44 VLDL Cholesterol 21 mg/dL (8-25) 05/09/18 03:44 Non-HDL Cholesterol 61 mg/dL (90-129) L 05/09/18 03:44 HDL Cholesterol 56 mg/dL (40-85) 05/09/18 03:44 LDL/HDL Ratio 0.72 RATIO (1.00-3.22) L 05/09/18 03:44 Cholesterol/HDL Ratio 2.09 RATIO (1.00-4.44) 05/09/18 03:44 Procalcitonin 0.10 ng/mL (0.02-0.10) 05/08/18 10:16 TSH 1.400 uIU/mL (0.465-4.680) 05/08/18 10:16 Visualized and Interpreted Chest x-ray results: Yes Visualized and Interpreted imaging results: Yes Interpretation: There is a chest CTA from this admission. There is no evidence of pulmonary embolism. She did have moderate bilateral pleural effusions. It was noted she had cardiomegaly. There is gas in the esophagus raising question of a connective tissue disease. The interventricular septum was noted to be flat consistent with right-sided pressure or volume overload. This was reviewed with the radiologist. When comparing this to a previous study from April 05 the pleural effusions are new. Other findings are chronic. EKG additional interpertation: Sinus bradycardia 57 beats per minute otherwise normal. Echocardiogram: See a separately dictated report. A/P Assessment: This is a 77-year-old female currently admitted with hypoxic respiratory failure. Her workup thus far indicates bilateral pleural effusions and findings consistent with new onset congestive heart failure. Interestingly, her echocardiogram demonstrates normal left ventricular size and function. Additionally, the Doppler profile of the mitral inflow patterns as well as tissue Doppler do not suggest elevated left atrial pressures. There is evidence of significant pulmonary hypertension with an estimated RVSP in excess of 80 mmHg. These findings suggest, however are not conclusive, for a non left- sided etiology for the development of severe pulmonary hypertension. I did review the echocardiogram personally. While I agree with the reading, the tricuspid regurgitant jet was not prominent leading to an error in measurement. Fortunately, the patient has responded nicely to diuretic therapy with an improvement in physical exam findings and subjective sensation of dyspnea. Her chest CT scan did not suggest any evidence of pulmonary embolism at least in the acute setting. Additionally, in reviewing the lung windows it does not appear that there are findings that suggest significant primary pulmonary parenchymal disease. Plan: 1. I agree with the administration of IV Lasix. I did, however, reduce this down to once daily. She appears to have responded nicely to the initial dose of diuretic therapy with a net loss of about 4 kg therefore I think we can be a little bit more gentle with her diuresis. 2. I noticed that her primary team has already sent labs for evaluation of systemic lupus erythematosus. 3. With the findings on her CT scan suggesting an abnormality of the esophagus and recent findings of pulmonary hypertension I think it would be worthwhile evaluating the patient for scleroderma. 4. Before proceeding with an extensive workup for pulmonary hypertension I think we should confirm the diagnosis and evaluate further for possible contributing factors from left heart failure in the setting of a preserved ejection fraction. I talked to the patient about undergoing a right heart catheterization. Will plan on doing this tomorrow via the left AC approach. 5. After the right heart catheterization is completed I think will be in a better position to further tailor her workup. 6. We will follow along with you. Review of Systems Review of Systems: - Review of Systems Constitutional: see HPI EENTM: no symptoms reported Respiratory: see HPI Cardiac: see HPI Gastrointestinal/Abdominal: see HPI Genitourinary: no symptoms Musculoskelatal: no symptoms Skin: no symptoms Neurological: no symptoms Hematologic/Lymphatic: no symptoms reported Immunologic/allergic: no symptoms reported All Other Systems: Reviewed and Negative
[2018-05-09] MEDS: FLUTICASONE NASAL 120 SPRAYS/16 GM MDI EACHNARE PRN (12:41)
[2018-05-09] MEDS: HYDROCODONE/APAP 5/325 TAB PO PRN ×2 (12:46→22:39)
[2018-05-09] MEDS: ONDANSETRON 4 MG/2 ML VIAL IVP PRN (12:52)
--- NOTE | 2018-05-09 13:52 | ASMTCMCOM ---
CM Note CM Note Notes: 05/09/2018 Case Management Note Discussed pt during rounds. Pt admitted for pleural effusion, increasing lower extremity edema, and SOB. 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 There are no therapy evals ordered at this time. Pt is independent in ADL's prior to admission. Case Management d/c poc: anticipating independent with follow up as directed. Case Management to follow. Date Signed: 05/09/2018 01:52 PM Electronically Signed By:Allyson Valdez RN
[2018-05-10 02:43] LABS: HIV TYPE 1 AND 2 NEGATIVE (NEGATIVE)
--- NOTE | 2018-05-10 05:10 | CPEKG ---
Test Reason : OPEN Blood Pressure : / mmHG Vent. Rate : 057 BPM Atrial Rate : 057 BPM P-R Int : 138 ms QRS Dur : 081 ms QT Int : 464 ms P-R-T Axes : 073 050 045 degrees QTc Int : 452 ms Sinus rhythm Confirmed by Elmo Gibbs ([id number]) on 05/10/2018 5:09:51 AM Referred By: Confirmed By:Elmo Gibbs
[2018-05-10 05:13] LABS: PLATELET COUNT 428 10^3/uL (150-400)
[2018-05-10 05:15] LABS: PROTIME(PATIENT) 13.4 SEC (12.0-15.0)
[2018-05-10] MEDS ORDERED: DIAZEPAM 5 MG TAB PO ONE (06:00)
[2018-05-10] MEDS ORDERED: diphenhydrAMINE 25 MG CAP PO ONE (06:00)
--- NOTE | 2018-05-10 09:05 | HOSPPROG ---
Hospitalist Progress Note Assessment/Plan: Acute hypoxemic respiratory failure - 5 --> 3 LPM. Echo reviewed: RVSP 80 with mod-severe TR and grade 1 Parsons dysfunction. Initial trop neg, but EKG abnormal with T wave inversions in anterior leads. She is afebrile, no cough, nl wbc's, PCT neg, thus doubt pna. -cont diuresis as below with K protocol -wean O2 as able Right heart failure in setting of severe pulmonary hypertension and b/l pleural effusions - net neg 3L. CTA neg for PE. -cont IV Lasix -follow I&O's, daily weights -cardiology following, right heart cath today Mod-severe TR - in setting of pulm htn and heart failure Lactic acidosis - did not present with sepsis picture, lactate down to 2.2 on repeat Normocytic anemia - prior hgb was nl, serum Fe and %sat low -start oral iron, outpt c-scope as below Cecal polyp - seen on recent outpt CT -outpt colonoscopy is planned N/V with intermittent dysphagia - recent chest CT suggested possible esophageal narrowing. Lipase nl. -start PPI -esophagram in am Full code DVT PPLX - Lovenox held today for procedure, resume tomorrow Dispo - cont inpt Subjective: Pt feels better, breathing improved. Denies CP or SOB at rest. No orthopnea or PND. LE swelling is better. She had some N/V last night, better after zofran. Also endorses dysphagia occasionally. Objective: Vital Signs Temp Pulse Resp BP Pulse Ox 36.7 C 62 18 151/62 H 98 05/10/18 08:00 05/10/18 08:00 05/10/18 08:00 05/10/18 08:00 05/10/18 08:00 Laboratory Results 05/10/18 04:20 05/10/18 04:20 05/09/18 05/10/18 05/11/18 05:59 05:59 05:59 Intake Total 750 600 Output Total 2550 1600 Balance -1800 -1000 PT 13.4 SEC (12.0-15.0) 05/10/18 04:20 INR 1.00 (0.83-1.16) 05/10/18 04:20 - Physical Exam Constitutional: no apparent distress Eyes: PERRL Ears, Nose, Mouth, Throat: moist mucous membranes Cardiovascular: regular rate and rhythym Respiratory: no respiratory distress, other (a few bibasilar crackles, improved) Gastrointestinal: normoactive bowel sounds, soft, non-tender abdomen Skin: warm Musculoskeletal: full muscle strength, other (tr b/l LE edema) Neurologic: AAOx3 Psychiatric: interacting appropriately ICD10 Worksheet Patient Problems: Problems Problem Status Onset Lower extremity edema Acute Pleural effusion Acute Arthrodesis status Acute Cervical radiculitis Acute Depression Acute Facial laceration Acute Hypertension Acute Neck pain Acute Tremor Acute Unsteady gait Acute
--- NOTE | 2018-05-10 09:12 | SOAPPROG ---
SOAP Progress Note Assessment/Plan: Assessment: 77-year-old female with really no known cardiovascular disease history who presents now with subacute hypoxic respiratory failure on the basis of what appears to be congestive heart failure. Her echocardiogram demonstrates severe pulmonary hypertension. Based on Doppler parameters this appears to be pulmonary arterial hypertension as indices of elevated left atrial pressures were not abnormal. It is not clear to me at the present time whether the echocardiographic assessment of her right ventricular systolic pressures is accurate as the Doppler profile of the tricuspid regurgitant jet was not optimal. During this hospitalization she has responded nicely to diuretic therapy with objective and subjective improvement. By examination she still has evidence of CHF with elevated neck veins and trace by pedal edema. Plan: 1. Continue once daily IV Lasix and careful monitoring of daily electrolytes. 2. Will plan for a right heart catheterization today to further assess her hemodynamics in light of her abnormal echocardiogram. 3. Following her right heart catheterization we will be able to better characterize her heart failure and fine tune the differential diagnosis. 4. Further recommendations will be made depending on the results of the above testing. 05/10/18 09:12 Subjective: She has had a nice diuresis since hospitalization. She notes significant symptomatic improvement resolution of lower extremity edema, a reduction in her oxygen requirements now down to 3 liters/minute and subjective improvement in symptoms of dyspnea. No arrhythmias have been identified. She has not had any chest discomfort, chest pain or chest heaviness. Yesterday review her echocardiogram. This indicates a preserved vacation of her ejection fraction with findings that suggest severe pulmonary arterial hypertension. Objective: Vital Signs Temp Pulse Resp BP Pulse Ox 36.7 C 62 18 151/62 H 98 05/10/18 08:00 05/10/18 08:00 05/10/18 08:00 05/10/18 08:00 05/10/18 08:00 Laboratory Results 05/10/18 04:20 05/10/18 04:20 05/09/18 05/10/18 05/11/18 05:59 05:59 05:59 Intake Total 750 600 Output Total 2550 1600 Balance -1800 -1000 PT 13.4 SEC (12.0-15.0) 05/10/18 04:20 INR 1.00 (0.83-1.16) 05/10/18 04:20 Physical Exam - Physical Exam General Appearance: WD/WN, other (Chronically ill) Neck: non-tender Respiratory: lungs clear, No crackles, No rales, No rhonchi Cardiac/Chest: regular rate, rhythm, JVD (To the mid neck sitting at 60 degrees) Abdomen: non-tender, soft Pelvic Exam: deferred Rectal: deferred Neuro/Psych: alert, oriented x 3 ICD10 Worksheet Patient Problems: Problems Problem Status Onset Lower extremity edema Acute Pleural effusion Acute Arthrodesis status Acute Cervical radiculitis Acute Depression Acute Facial laceration Acute Hypertension Acute Neck pain Acute Tremor Acute Unsteady gait Acute
[2018-05-10] MEDS ORDERED: POTASSIUM CL 10 MEQ TAB PO ONE (09:23)
[2018-05-10] MEDS: FUROSEMIDE 40 MG/4 ML VIAL IVP SCH (09:37)
[2018-05-10] MEDS: FERROUS SULFATE 325 MG TAB PO SCH (09:38)
[2018-05-10] MEDS: LISINOPRIL 10 MG TAB PO SCH (09:38)
[2018-05-10] MEDS: ESCITALOPRAM OXALATE 10 MG TAB PO SCH (09:39)
[2018-05-10] MEDS: METOPROLOL TARTRATE 25 MG TAB PO SCH ×2 (09:39→20:04)
[2018-05-10] MEDS: PANTOPRAZOLE SODIUM 40 MG TAB PO SCH (09:42)
--- NOTE | 2018-05-10 12:24 | PDPROPOC ---
Sedation Plan of Care Sedation Plan of Care: vital signs stable, mental status noted, patient educated of risks, benefits, alternatives, patient can tolerate sedation ASA Classification: ASA 1 Planned drugs: fentanyl, midazolam Mallampati Score: Class 1 Mallampati Reference Image: Patient passed 3-3-2 rule?: Yes
--- NOTE | 2018-05-10 12:24 | PDHPUP ---
History & Physical Update H&P update statement: This history and physical update is based on an assessment of the patient which was completed after admission or registration (within 24 hours), but prior to the surgery/procedure. H&P update: H&P reviewed & patient examined, no change in patient's condition since H&P completed
[2018-05-10] MEDS ORDERED: LIDOCAINE 1% 300 MG/30 ML SDV ONE (12:45)
[2018-05-10] MEDS ORDERED: fentaNYL 100 MCG/2 ML INJ ONE (12:45)
[2018-05-10] MEDS ORDERED: IOPAMIDOL (ISOVUE-370) 150 ML BTL IV ONE (12:46)
[2018-05-10] MEDS ORDERED: MIDAZOLAM 2 MG/2 ML VIAL ONE (12:46)
--- NOTE | 2018-05-10 13:55 | PDDXCAT ---
Diagnostic Cath Note - . Date: 05/10/18 Behaviorist: Catrina Indication: other (Right heart catheterization only in the evaluation of this patient with new onset congestive heart failure and evidence of severe pulmonary hypertension.) - Procedure Access: left wrist (Antecubital) Procedure: right heart catheterization - Materials Right Heart Cath size: 5F Right Heart Cath materials: PWP catheter - Findings-Right Heart Catheterization RA: 5 mmHg. RV: 59/0/7 mmHg. PA: 54/16/30 mmHg. 56% saturation. PAOP: 12 mmHg. AO: 92% saturation. CO: 3.07 liters/minute. CI: 2.03 liters/minute. Complications: None. Estimated blood loss: <50ml Closure method: manual pressure Assessment: Right heart catheterization indicating evidence of moderate pulmonary arterial hypertension in the setting of normal left heart filling pressures with a transpulmonary gradient of 19 mmHg. Plan: The patient will be evaluated for etiologies of pulmonary arterial hypertension. Intervention: None. Patient Problems: Problems Problem Status Onset Lower extremity edema Acute Pleural effusion Acute Arthrodesis status Acute Cervical radiculitis Acute Depression Acute Facial laceration Acute Hypertension Acute Neck pain Acute Tremor Acute Unsteady gait Acute
[2018-05-10] MEDS: HYDROCODONE/APAP 5/325 TAB PO PRN (20:07)
[2018-05-11] MEDS: ESCITALOPRAM OXALATE 10 MG TAB PO SCH (08:15)
[2018-05-11] MEDS: PANTOPRAZOLE SODIUM 40 MG TAB PO SCH (08:15)
[2018-05-11] MEDS: FUROSEMIDE 40 MG/4 ML VIAL IVP SCH (08:15)
[2018-05-11] MEDS: LISINOPRIL 10 MG TAB PO SCH (08:16)
[2018-05-11] MEDS: METOPROLOL TARTRATE 25 MG TAB PO SCH ×2 (08:16→20:48)
[2018-05-11] MEDS: FERROUS SULFATE 325 MG TAB PO SCH (08:16)
[2018-05-11] MEDS ORDERED: POTASSIUM CL 10 MEQ TAB PO ONE (08:25)
--- NOTE | 2018-05-11 08:29 | HOSPPROG ---
Hospitalist Progress Note Assessment/Plan: Acute hypoxemic respiratory failure - Secondary to acute HF with b/l pleural effusions. O2 needs 5 --> 1 LPM. Echo: RVSP 80 with mod-severe TR and grade 1 Parsons dysfunction. Initial trop neg, but EKG abnormal with T wave inversions in anterior leads. -cont diuresis as below with K protocol, change to oral lasix in am -wean O2 as able Right heart failure in setting of severe pulmonary hypertension and b/l pleural effusions - Wt down 4.5 kg. CTA neg for PE. -change to po lasix tomorrow -follow I&O's, daily weights -cardiology following, right heart cath yest confirmed pulm htn -pulmonology consult today, discussed case with Dr. Melton Mod-severe TR - in setting of pulm htn and heart failure Lactic acidosis - did not present with sepsis picture, lactate down to 2.2 on repeat Normocytic anemia - prior hgb was nl, serum Fe and %sat low -started oral iron, outpt c-scope as below Cecal polyp - seen on recent outpt CT -outpt colonoscopy is planned N/V with intermittent dysphagia - recent chest CT suggested possible esophageal narrowing. Lipase nl. -cont PPI -esophagram today Full code DVT PPLX - Lovenox Dispo - cont inpt Subjective: Pt feels better. Breathing much improved. No chest pain. She is worried about her breathing going up and down her stairs at home. Objective: Vital Signs Temp Pulse Resp BP Pulse Ox 37.0 C 83 17 125/69 H 97 05/11/18 07:38 05/11/18 08:16 05/11/18 07:38 05/11/18 07:38 05/11/18 07:38 Laboratory Results 05/10/18 04:20 05/11/18 03:40 05/10/18 05/11/18 05/12/18 05:59 05:59 05:59 Intake Total 600 1320 Output Total 1600 650 Balance -1000 670 PT 13.4 SEC (12.0-15.0) 05/10/18 04:20 INR 1.00 (0.83-1.16) 05/10/18 04:20 - Physical Exam Constitutional: no apparent distress Eyes: PERRL Ears, Nose, Mouth, Throat: moist mucous membranes Cardiovascular: regular rate and rhythym Respiratory: no respiratory distress, clear to auscultation Gastrointestinal: normoactive bowel sounds, soft, non-tender abdomen Skin: warm Musculoskeletal: full muscle strength, other (tr b/l LE edema, much improved) Neurologic: AAOx3 Psychiatric: interacting appropriately ICD10 Worksheet Patient Problems: Problems Problem Status Onset Lower extremity edema Acute Pleural effusion Acute chronic disease mgmt/transitional care Acute Arthrodesis status Acute Cervical radiculitis Acute Depression Acute Facial laceration Acute Hypertension Acute Neck pain Acute Tremor Acute Unsteady gait Acute
[2018-05-11] MEDS: ENOXAPARIN 40 MG/0.4 ML SYR SC SCH (08:39)
--- NOTE | 2018-05-11 10:51 | SOAPPROG ---
SOAP Progress Note Assessment/Plan: Assessment: 77-year-old female with really no known cardiovascular disease history who presents now with subacute hypoxic respiratory failure on the basis of what appears to be congestive heart failure. Her echocardiogram demonstrates severe pulmonary hypertension. Based on Doppler parameters this appears to be pulmonary arterial hypertension as indices of elevated left atrial pressures were not abnormal. It is not clear to me at the present time whether the echocardiographic assessment of her right ventricular systolic pressures is accurate as the Doppler profile of the tricuspid regurgitant jet was not optimal. During this hospitalization she has responded nicely to diuretic therapy with objective and subjective improvement. By examination she still has evidence of CHF with elevated neck veins and trace by pedal edema. 05/11/2018: At this point, she appears euvolemic. Based on her workup thus far , she appears to have pulmonary arterial hypertension. It does not appear that there is a contributing factor from left ventricular dysfunction or significant valvular disease. Plan: 1. She will be transitioned from IV over to p.o. Lasix. 2. Pulmonology has been consulted regarding any additional testing or therapies that might be advantageous. 3. I would like to check her oxygenation on room air both at rest and post ambulation. 4. I think likely that she will be able to be discharged home soon. 05/11/18 10:49 Subjective: She states that she is feeling well today. She feels back to her baseline. She has no edema, orthopnea, PND or exertional dyspnea. Her right arm is feeling fine following her recent right heart catheterization. Earlier today I did talk to the ux information architect regarding a consult which they plan on doing today. Objective: Vital Signs Temp Pulse Resp BP Pulse Ox 37.0 C 83 17 125/69 H 97 05/11/18 07:38 05/11/18 08:16 05/11/18 07:38 05/11/18 07:38 05/11/18 07:38 Laboratory Results 05/10/18 04:20 05/11/18 03:40 05/10/18 05/11/18 05/12/18 05:59 05:59 05:59 Intake Total 600 1320 Output Total 1600 650 Balance -1000 670 PT 13.4 SEC (12.0-15.0) 05/10/18 04:20 INR 1.00 (0.83-1.16) 05/10/18 04:20 Physical Exam - Physical Exam General Appearance: thin, other (Chronically ill) Neck: non-tender, other (No jugular venous distention) Respiratory: lungs clear Cardiac/Chest: regular rate, rhythm, No edema, No gallop, No JVD Peripheral Pulses: 2+: carotid (R), carotid (L) Abdomen: non-tender Pelvic Exam: deferred Rectal: deferred ICD10 Worksheet Patient Problems: Problems Problem Status Onset Cervical radiculitis Acute Neck pain Acute Arthrodesis status Acute Tremor Acute Unsteady gait Acute Hypertension Acute Depression Acute Facial laceration Acute Pleural effusion Acute Lower extremity edema Acute
[2018-05-11] MEDS: HYDROCODONE/APAP 5/325 TAB PO PRN (12:39)
[2018-05-11] MEDS ORDERED: LACTULOSE 20 GM/30 ML UDCUP PO PRN (12:43)
[2018-05-11] MEDS ORDERED: MAGNESIUM HYDROXIDE 30 ML UDCUP PO PRN (12:43)
[2018-05-11] MEDS ORDERED: POLYETHYLENE GLYCOL 3350 17 GM PKT PO PRN (12:43)
[2018-05-11] MEDS: SENNOSIDES/DOCUSATE SODIUM TAB PO SCH ×2 (15:56→20:49)
--- NOTE | 2018-05-11 16:23 | PDINTPN ---
Sharepoint Web Developer Progress Note Assessment/Plan: PULM CHART REVIEW AND PRELIM IMPRESSION I reviewed patient's case by phone with Minor IMPRESSION 77 yo F with KRISTIE admitted with decompensated CHF and a new diagnosis of pulmonary arterial hypertension. CTA chest ruled out acute PE and overt e/o CTEPH but did demonstrate bilateral pleural effusions. TTE with elevated RVSP, normal appearing RV and mild LV diastolic dysfunction. RHC without elevated PAOP. PA mean on RHC 30 (likely down from admission d/t diuresis but still elevated) and low normal CI. Fe deficiency anemia present, which is a risk factor for idiopathic WHO I PAH and can worsen precipitate decompensated CHF. # PAH, idiopathic at this junction # Fe deficiency anemia. this is an independent RF for idiopathic PAH # bilateral pleural effusions # decompensated CHF. Appears mostly due to RHF. However bilateral pleural effusions suggest biventricular HF unless pleural fluid is ascites that has translocated across diaphragm. Although PAOP was not elevated at time of cath, a fluid challenge may uncover more LV diastolic pathology by raising wedge and narrowing DPG. Chest. 2017 Apr;151(1):119-126 # KRISTIE - suboptimal treatment adherence. Also may be contributing to elevated pulmonary pressures RECOMMENDATIONS # agree with diuresis # add low dose daily spironolactone (25 mg daily) for K sparing effect and RV remodeling # Initiate IVF iron sucrose infusions (500 mg daily) to help correct anemia, PH and HF. # total iron debt ~ 1300 mg # consider aspirin 81 to attenuate PAH. Cell Biochem Biophys. 2011 Dec;61(1):23- 31. # agree with scleroderma and autoimmune work up for lupus and MCTD # outpatient anemia work up for occult GIB # I am happy to see patient in pulm clinic to discuss potential treatment with PH specific therapies after discharge 05/11/18 16:40 Objective: Vital Signs Temp Pulse Resp BP Pulse Ox 36.8 C 74 20 118/72 94 05/11/18 15:58 05/11/18 15:58 05/11/18 15:58 05/11/18 15:58 05/11/18 15:58 Laboratory Results 05/10/18 04:20 05/11/18 03:40 05/10/18 05/11/18 05/12/18 05:59 05:59 05:59 Intake Total 600 1320 Output Total 1600 650 Balance -1000 670 PT 13.4 SEC (12.0-15.0) 05/10/18 04:20 INR 1.00 (0.83-1.16) 05/10/18 04:20 ICD10 Worksheet Patient Problems: Problems Problem Status Onset Lower extremity edema Acute Pleural effusion Acute chronic disease mgmt/transitional care Acute Arthrodesis status Acute Cervical radiculitis Acute Depression Acute Facial laceration Acute Hypertension Acute Neck pain Acute Tremor Acute Unsteady gait Acute
--- NOTE | 2018-05-11 16:25 | ASMTCMCOM ---
CM Note CM Note Notes: Spoke with pt in the room. PT is now recommending home care, pt is amenable and understands she needs to be home bound to qualify. Pt lives alone and son is caring for her dog. [facility] has accepted pt. Referral sent. CM to follow. D/C Plan: [facility] PT/OT Date Signed: 05/11/2018 04:25 PM Electronically Signed By:Carlie Fragoso
[2018-05-11] MEDS ORDERED: SUCROSE IV SCH (17:00)
[2018-05-11] MEDS ORDERED: SODIUM FERRIC GLUCONAT IV SCH (17:00)
[2018-05-11] MEDS ORDERED: NS IV SCH (17:00)
[2018-05-11] MEDS: SUCROSE IV SCH (17:37)
[2018-05-11] MEDS: SODIUM FERRIC GLUCONAT IV SCH (17:37)
[2018-05-11] MEDS: NS IV SCH (17:37)
[2018-05-11] MEDS: SPIRONOLACTONE 25 MG TAB PO SCH (17:37)
--- NOTE | 2018-05-11 17:39 | GCON ---
PULMONARY/CRITICAL CARE CONSULTATION. DATE OF CONSULTATION: 05/11/2018 REFERRING PHYSICIAN: Sara Wasserman MD REASON FOR REFERRAL: Evaluation and management of pulmonary hypertension. 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 This became quite a bit worse and so she presented to the em ergency department 3 days ago, and was found to have an oxygen saturation of 75%. An echocardiogram suggested pulmonary hypertension, so right heart catheterization was performed which confirmed severe pulmonary hypertension. She states that as recently as just a week or so ago, she really had no sym ptoms of dyspnea whatsoever. She is not particularly active, but was able to do activities such as w alking up and down stairs in her multilevel home, shopping, and walking the dog without any dyspnea w hatsoever. She does not do any regular aerobic exercise. She denies any cough, fever or chest pain recently. She has not had any leg swelling or discomfort. She states that now since admission she h as been diuresed and her symptoms have improved. She was initially on 5 L of oxygen, now on 1 L of o xygen. PAST MEDICAL HISTORY: 1. Hypertension. 2. Depression. 3. Chronic shoulder pain. 4. Obstructive sleep apnea. The patient states that she was diagnosed about 9 months ago with a sle ep study. She recalls that her AHI was 13. She does not recall being told that she had hypoxemia. She was placed on CPAP and used it fairly regularly for a while, but had difficulty tolerating the na deepika mask due to nasal congestion, so she has not used it for about a month. MEDICATIONS: Excedrin, atenolol, escitalopram, fluticasone, [place] p.r.n., Boniva, lisinopril, and ni fedipine. She was using Afrin twice daily until about a month ago, at which point she stopped. ALLERGIES: Ibuprofen. SOCIAL HISTORY: The patient has never smoked and uses alcohol just occasionally. FAMILY HISTORY: Positive for a known fraternal twin sister who has Eisenmenger's. REVIEW OF SYSTEMS: 10-point review of systems adds nothing to the history of present illness. PHYSICAL EXAMINATION: GENERAL: The patient is awake and alert. She is in no acute distress. VITAL SIGNS: Blood pressure is 118/72, with a heart rate of 74. She is afebrile. Oxygen saturations are 94% on 2 L and also 94% on room air. HEENT: Normocephalic and atraumatic. No icterus. NECK: No JV D. Trachea is midline. CHEST: She has some rales in the bases. CARDIAC: Regular rate and rhythm w ithout murmur. ABDOMEN: Soft, nontender. Bowel sounds are present. EXTREMITIES: No clubbing, cya nosis, or edema. NEURO: The patient is awake and alert. She has no gross motor or sensory deficits. LABORATORY: Hemoglobin is 8.6, down from 9.4 at admission. Her MCV is 85.5. Chemistry group is unr emarkable. A BNP is 3360 at admission. Iron level is low at 18, iron saturation is 4%, and a ferrit in is 13. AST is 62. INR is 1. Arterial blood gas shows a lactate of 3.9 on admission, falling to 2.2 on recheck. An JJ is normal at 0.23. An HIV test is negative. An echocardiogram showed a norm al LV with an estimated RVSP of [address] scan of the chest shows an equivocal tiny filling defe ct in the right base and an area of motion artifact. There are bilateral effusions, small on the lef t and small to moderate on the right. The intraventricular septum is flattened. Heart catheterization demonstrates a pulmonary artery occlusion pressure of 12 mmHg with a PA pressur e of 54/16/30 mmHg. PA saturation is 56%. Cardiac index is 2.0. ASSESSMENT: 1. Pulmonary hypertension. This is moderate in severity by the pulmonary artery catheterization. I t was more severe on the echocardiogram, and this is likely either due to an inaccuracy of the echo o r perhaps her pulmonary artery pressures were higher when she was more hypoxemic at admission. She i s symptomatically improved with diuresis, with reduced edema and dyspnea and hypoxemia. Interestingl y, she really denies any symptoms whatsoever prior to a week ago. In terms of possible causes, she h as no evidence of chronic thromboembolic pulmonary hypertension. JJ and HIV are negative for connec tive tissue disease or HIV associated pulmonary hypertension. 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 It seems unlikely that mild degree of pulmonary hypertension without significant hypoxemia wo uld cause moderate pulmonary hypertension, but this will need to be confirmed by getting a regional s leep study and possibly overnight oximetry. Interestingly, the patient's sister has "Eisenmenger's", but this is more typically related to a septal defect which is unlikely in this patient given the no rmal PA saturation. 2. Anemia. Iron deficiency. This will need to be further evaluated. 3. Obstructive sleep apnea. This is apparently mild. The patient is not currently on treatment. S he may benefit from treatment both for symptoms of fatigue as well as pulmonary hypertension. RECOMMENDATIONS: 1. Continue Lasix. 2. Begin spironolactone. 3. We will attempt to get records from the patient and possibly [facility] regarding h er sleep apnea treatment to assist in further outpatient evaluation. 4. Dr. Martin Milton will see the patient in followup tomorrow to enroll the patient in his pulmona ry hypertension clinic. /[id number]/MODL
[2018-05-11] MEDS: ONDANSETRON 4 MG/2 ML VIAL IVP PRN (21:56)
[2018-05-11] MEDS: BISACODYL 10 MG SUPP PR PRN (22:55)
[2018-05-12] MEDS: HYDROCODONE/APAP 5/325 TAB PO PRN ×2 (02:09→15:37)
[2018-05-12] MEDS: ENOXAPARIN 40 MG/0.4 ML SYR SC SCH (08:05)
[2018-05-12] MEDS: ESCITALOPRAM OXALATE 10 MG TAB PO SCH (08:05)
[2018-05-12] MEDS: FUROSEMIDE 40 MG TAB PO SCH (08:06)
[2018-05-12] MEDS: FERROUS SULFATE 325 MG TAB PO SCH (08:06)
[2018-05-12] MEDS: SENNOSIDES/DOCUSATE SODIUM TAB PO SCH ×2 (08:07→23:03)
[2018-05-12] MEDS: SPIRONOLACTONE 25 MG TAB PO SCH (08:07)
[2018-05-12] MEDS: PANTOPRAZOLE SODIUM 40 MG TAB PO SCH (08:07)
[2018-05-12] MEDS: SUCROSE IV SCH (08:08)
[2018-05-12] MEDS: SODIUM FERRIC GLUCONAT IV SCH (08:08)
[2018-05-12] MEDS: FLUTICASONE NASAL 120 SPRAYS/16 GM MDI EACHNARE PRN (08:08)
[2018-05-12] MEDS: NS IV SCH (08:08)
--- NOTE | 2018-05-12 09:33 | PDINTPN ---
Premium Service Representative Progress Note Assessment/Plan: IMPRESSION 77 yo F with KRISTIE admitted with decompensated CHF and a new diagnosis of pulmonary arterial hypertension. CTA chest ruled out acute PE and overt e/o CTEPH but did demonstrate bilateral pleural effusions. TTE with elevated RVSP, normal appearing RV and mild LV diastolic dysfunction. RHC without elevated wedge. PA mean on RHC 30 (likely down from admission d/t diuresis but still elevated) and low normal CI. Fe deficiency anemia present, which is a risk factor for idiopathic WHO I PAH and can worsen precipitate decompensated CHF. # PAH, idiopathic at this junction. # Fe deficiency anemia. This is an independent RF for idiopathic PAH # bilateral pleural effusions # acute hypoxemic resp failure # decompensated CHF. Appears mostly due to RHF. However bilateral pleural effusions suggest biventricular HF unless pleural fluid is ascites that has translocated across diaphragm. Although PAOP was not elevated at time of cath, a fluid challenge may uncover more LV diastolic pathology by raising wedge and narrowing DPG. Chest. 2017 Apr;151(1):119-126 # KRISTIE - suboptimal treatment adherence. Also may be contributing to elevated pulmonary pressures RECOMMENDATIONS # continue lasix upon discharge # low dose daily spironolactone (25 mg daily) for K sparing effect and RV remodeling # Continue IVF iron sucrose infusions (500 mg daily) to help correct anemia, PH and HF. # total iron debt ~ 1300 mg # consider aspirin 81 to attenuate PAH. Cell Biochem Biophys. 2011 Dec;61(1):23- 31. # agree with scleroderma and autoimmune work up for lupus and MCTD # outpatient anemia work up for occult GIB # new mask to help tolerate CPAP as OP # I am happy to see patient in pulm clinic to discuss potential treatment with PH specific therapies after discharge # appears near ready for discharge Subjective: Feeling better this AM. IV iron started. Still complaining of mild BLEE. No syncope, no fevers, chills, nausea, vomiting, chest pain Objective: Vital Signs Temp Pulse Resp BP Pulse Ox 36.8 C 86 18 98/61 L 98 05/12/18 07:39 05/12/18 07:39 05/12/18 07:39 05/12/18 07:39 05/12/18 07:39 Laboratory Results 05/10/18 04:20 05/12/18 03:30 05/11/18 05/12/18 05/13/18 05:59 05:59 05:59 Intake Total 1320 805 440 Output Total 650 1100 Balance 670 -295 440 PT 13.4 SEC (12.0-15.0) 05/10/18 04:20 INR 1.00 (0.83-1.16) 05/10/18 04:20 I personally reviewed interpreted patient's radiographic images well as formal radiology reads. CT chest without PE. Bilateral effusions, enlarged RA and RV Physical Exam - Physical Exam General Appearance: alert EENT: PERRL/EOMI, pale conjunctiva (R), pale conjunctiva (L) Neck: non-tender, full range of motion Respiratory: chest non-tender, lungs clear Cardiac/Chest: other (Regular rate and rhythm, prominent S2, no S3, ) Abdomen: non-tender, soft Back: Normal inspection Skin: normal color, warm/dry Extremities: normal range of motion, non-tender, pedal edema, swelling Neuro/Psych: no motor/sensory deficits, alert, normal mood/affect, oriented x 3 ICD10 Worksheet Patient Problems: Problems Problem Status Onset Lower extremity edema Acute Pleural effusion Acute chronic disease [facility]/transitional care Acute Arthrodesis status Acute Cervical radiculitis Acute Depression Acute Facial laceration Acute Hypertension Acute Neck pain Acute Tremor Acute Unsteady gait Acute
--- NOTE | 2018-05-12 09:44 | HOSPPROG ---
Hospitalist Progress Note Assessment/Plan: Acute hypoxemic respiratory failure - Secondary to acute HF with b/l pleural effusions and SOB on arrival, now improved. O2 needs 5 --> 1 LPM. Echo: RVSP 80 with mod-severe TR and grade 1 Parsons dysfunction. Initial trop neg, but EKG abnormal with T wave inversions in anterior leads. -changed to oral lasix today -wean O2 as able, she'll likely need home O2 Right heart failure in setting of severe pulmonary hypertension and b/l pleural effusions - Wt down 4.5 kg. CTA neg for PE. -cont po lasix -follow I&O's, daily weights -cardiology following, right heart cath confirmed pulm htn -pulmonology consult appreciated, s/p 1 g IV iron load (cont oral iron on discharge) -outpt f/u for KRISTIE Mod-severe TR - in setting of pulm htn and heart failure Lactic acidosis - did not present with sepsis picture, lactate down to 2.2 on repeat Normocytic anemia - prior hgb was nl, serum Fe and %sat low -cont oral iron, outpt c-scope as below Cecal polyp - seen on recent outpt CT -outpt colonoscopy is planned N/V with intermittent dysphagia - recent chest CT suggested possible esophageal narrowing. Lipase nl. Esophagram with schatzki ring, mild gerd, sm HH -cont PPI -outpt f/u with GI Full code DVT PPLX - Lovenox Dispo - cont inpt, d/c this afternoon or tomorrow am with C RN, PT Subjective: Pt feels weak and puny. Did not sleep well. She had problems with constipation overnight, did finally have a BM with bowel regimen. She does not feel ready for discharge today. no CP or SOb. Breathing is improved. Objective: Vital Signs Temp Pulse Resp BP Pulse Ox 36.8 C 86 18 98/61 L 98 05/12/18 07:39 05/12/18 07:39 05/12/18 07:39 05/12/18 07:39 05/12/18 07:39 Laboratory Results 05/10/18 04:20 05/12/18 03:30 05/11/18 05/12/18 05/13/18 05:59 05:59 05:59 Intake Total 1320 805 440 Output Total 650 1100 Balance 670 -295 440 PT 13.4 SEC (12.0-15.0) 05/10/18 04:20 INR 1.00 (0.83-1.16) 05/10/18 04:20 - Physical Exam Constitutional: no apparent distress Eyes: PERRL Ears, Nose, Mouth, Throat: moist mucous membranes Cardiovascular: regular rate and rhythym Respiratory: no respiratory distress, clear to auscultation Gastrointestinal: normoactive bowel sounds, soft, non-tender abdomen Skin: warm Musculoskeletal: full muscle strength Neurologic: AAOx3 Psychiatric: interacting appropriately ICD10 Worksheet Patient Problems: Problems Problem Status Onset Lower extremity edema Acute Pleural effusion Acute chronic disease mgmt/transitional care Acute Arthrodesis status Acute Cervical radiculitis Acute Depression Acute Facial laceration Acute Hypertension Acute Neck pain Acute Tremor Acute Unsteady gait Acute
[2018-05-12] MEDS: LISINOPRIL 10 MG TAB PO SCH (09:54)
[2018-05-12] MEDS: METOPROLOL TARTRATE 25 MG TAB PO SCH ×2 (09:54→20:30)
--- NOTE | 2018-05-12 12:51 | SOAPPROG ---
SOAP Progress Note Assessment/Plan: Assessment: 77-year-old female with really no known cardiovascular disease history who presents now with subacute hypoxic respiratory failure on the basis of what appears to be congestive heart failure. Her echocardiogram demonstrates severe pulmonary hypertension. Based on Doppler parameters this appears to be pulmonary arterial hypertension as indices of elevated left atrial pressures were not abnormal. It is not clear to me at the present time whether the echocardiographic assessment of her right ventricular systolic pressures is accurate as the Doppler profile of the tricuspid regurgitant jet was not optimal. During this hospitalization she has responded nicely to diuretic therapy with objective and subjective improvement. By examination she still has evidence of CHF with elevated neck veins and trace by pedal edema. 05/11/2018: At this point, she appears euvolemic. Based on her workup thus far , she appears to have pulmonary arterial hypertension. It does not appear that there is a contributing factor from left ventricular dysfunction or significant valvular disease. 05/12/2018: She is doing well today. She feels back to her baseline. I appreciate the input from pulmonology. Plan: 1. Agree with plans from pulmonology. 2. At this point I think she can be discharged home on her current medications. 3. I am happy to see her back in the office for follow-up in the next several weeks. 05/12/18 12:53 Objective: Vital Signs Temp Pulse Resp BP Pulse Ox 36.8 C 67 15 115/61 99 05/12/18 11:27 05/12/18 11:27 05/12/18 11:27 05/12/18 11:27 05/12/18 11:27 Laboratory Results 05/10/18 04:20 05/12/18 03:30 05/11/18 05/12/18 05/13/18 05:59 05:59 05:59 Intake Total 1320 805 440 Output Total 650 1100 Balance 670 -295 440 PT 13.4 SEC (12.0-15.0) 05/10/18 04:20 INR 1.00 (0.83-1.16) 05/10/18 04:20 Physical Exam - Physical Exam General Appearance: WD/WN, thin Respiratory: lungs clear Cardiac/Chest: regular rate, rhythm Peripheral Pulses: 2+: carotid (R), carotid (L) Abdomen: non-tender, soft Pelvic Exam: deferred Rectal: deferred ICD10 Worksheet Patient Problems: Problems Problem Status Onset chronic disease mgmt/transitional care Acute Cervical radiculitis Acute Neck pain Acute Arthrodesis status Acute Tremor Acute Unsteady gait Acute Hypertension Acute Depression Acute Facial laceration Acute Pleural effusion Acute Lower extremity edema Acute
[2018-05-12] MEDS: BISACODYL 10 MG SUPP PR PRN (13:36)
[2018-05-12] MEDS: ONDANSETRON 4 MG/2 ML VIAL IVP PRN (15:01)
[2018-05-12] MEDS ORDERED: POTASSIUM CL 10 MEQ TAB PO ONE (20:27)
[2018-05-13] MEDS: SODIUM FERRIC GLUCONAT IV SCH (08:44)
[2018-05-13] MEDS: FERROUS SULFATE 325 MG TAB PO SCH (08:44)
[2018-05-13] MEDS: SENNOSIDES/DOCUSATE SODIUM TAB PO SCH ×2 (08:44→20:58)
[2018-05-13] MEDS: NS IV SCH (08:44)
[2018-05-13] MEDS: FUROSEMIDE 40 MG TAB PO SCH (08:44)
[2018-05-13] MEDS: SPIRONOLACTONE 25 MG TAB PO SCH (08:44)
[2018-05-13] MEDS: SUCROSE IV SCH (08:44)
[2018-05-13] MEDS: PANTOPRAZOLE SODIUM 40 MG TAB PO SCH (08:45)
[2018-05-13] MEDS: ESCITALOPRAM OXALATE 10 MG TAB PO SCH (08:45)
[2018-05-13] MEDS: ENOXAPARIN 40 MG/0.4 ML SYR SC SCH (08:45)
[2018-05-13] MEDS: METOPROLOL TARTRATE 25 MG TAB PO SCH ×2 (09:11→20:59)
[2018-05-13] MEDS: LISINOPRIL 10 MG TAB PO SCH ×2 (09:12→15:21)
[2018-05-13] MEDS: ONDANSETRON 4 MG/2 ML VIAL IVP PRN (11:39)
[2018-05-13] MEDS ORDERED: FUROSEMIDE 40 MG/4 ML VIAL IVP ONE (14:46)
[2018-05-13] MEDS: HYDROCODONE/APAP 5/325 TAB PO PRN ×2 (15:21→23:43)
--- NOTE | 2018-05-13 15:42 | SOAPPROG ---
SOAP Progress Note Assessment/Plan: Assessment: 77-year-old female with really no known cardiovascular disease history who presents now with subacute hypoxic respiratory failure on the basis of what appears to be congestive heart failure. Her echocardiogram demonstrates severe pulmonary hypertension. Based on Doppler parameters this appears to be pulmonary arterial hypertension as indices of elevated left atrial pressures were not abnormal. It is not clear to me at the present time whether the echocardiographic assessment of her right ventricular systolic pressures is accurate as the Doppler profile of the tricuspid regurgitant jet was not optimal. During this hospitalization she has responded nicely to diuretic therapy with objective and subjective improvement. By examination she still has evidence of CHF with elevated neck veins and trace by pedal edema. 05/11/2018: At this point, she appears euvolemic. Based on her workup thus far , she appears to have pulmonary arterial hypertension. It does not appear that there is a contributing factor from left ventricular dysfunction or significant valvular disease. 05/12/2018: She is doing well today. She feels back to her baseline. I appreciate the input from pulmonology. 05/13/2018: Overall improved from yesterday. Constipation has resolved. Oxygen levels have likewise improved. Her chest x-ray from today indicates resolution of previously noted pleural effusions. Plan: 1. I will give her an additional dose of IV Lasix today in light of the volume related to her iron infusions. 2. Tomorrow will plan to resume p.o. Lasix only. 3. I think it is likely that she will be able to be discharged home tomorrow with follow-up in pulmonology and with myself. 05/13/18 15:46 Subjective: She is feeling a little bit better today. She has received additional IV iron today. Fortunately constipation has resolved. She was a little bit nauseated earlier this morning with a single episode of emesis. Her oxygenation has improved. Objective: Vital Signs Temp Pulse Resp BP Pulse Ox 36.4 C 75 16 129/70 H 91 L 05/13/18 15:26 05/13/18 15:26 05/13/18 15:26 05/13/18 15:26 05/13/18 15:26 Microbiology 05/08/18 11:03 Blood Culture - Final Blood Laboratory Results 05/10/18 04:20 05/13/18 03:30 05/12/18 05/13/18 05/14/18 05:59 05:59 05:59 Intake Total 805 1290 Output Total 1100 900 900 Balance -295 390 -900 PT 13.4 SEC (12.0-15.0) 05/10/18 04:20 INR 1.00 (0.83-1.16) 05/10/18 04:20 Physical Exam - Physical Exam General Appearance: no apparent distress, thin Neck: non-tender, full range of motion Respiratory: lungs clear, No rales, No rhonchi Cardiac/Chest: regular rate, rhythm, No edema, No gallop, No JVD Peripheral Pulses: 2+: carotid (R), carotid (L) Abdomen: non-tender, soft ICD10 Worksheet Patient Problems: Problems Problem Status Onset chronic disease mgmt/transitional care Acute Cervical radiculitis Acute Neck pain Acute Arthrodesis status Acute Tremor Acute Unsteady gait Acute Hypertension Acute Depression Acute Facial laceration Acute Pleural effusion Acute Lower extremity edema Acute
--- NOTE | 2018-05-13 16:11 | HOSPPROG ---
Hospitalist Progress Note Assessment/Plan: Acute hypoxemic respiratory failure - Secondary to acute HF with b/l pleural effusions and SOB on arrival, now improved. O2 needs 5 --> 1 LPM. Echo: RVSP 80 with mod-severe TR and grade 1 Parsons dysfunction. Initial trop neg, but EKG abnormal with T wave inversions in anterior leads. -changed to oral lasix today -wean O2 as able, she'll likely need home O2 Right heart failure in setting of severe pulmonary hypertension and b/l pleural effusions - Wt down 4.5 kg. CTA neg for PE. -cont po lasix -follow I&O's, daily weights -cardiology following, right heart cath confirmed pulm htn -pulmonology consult appreciated, s/p 1 g IV iron load (cont oral iron on discharge) -outpt f/u for KRISTIE -will need to follow up with pulmonology as outpatient Mod-severe TR - in setting of pulm htn and heart failure Lactic acidosis - did not present with sepsis picture, lactate down to 2.2 on repeat Normocytic anemia - prior hgb was nl, serum Fe and %sat low -cont oral iron, outpt c-scope as below Cecal polyp - seen on recent outpt CT -outpt colonoscopy is planned N/V with intermittent dysphagia - recent chest CT suggested possible esophageal narrowing. Lipase nl. Esophagram with schatzki ring, mild gerd, sm HH -cont PPI -outpt f/u with GI Full code DVT PPLX - Lovenox Dispo -dc in am. Subjective: patient feeling better today. Tired but shortness of breath improved. Objective: Vital Signs Temp Pulse Resp BP Pulse Ox 36.4 C 75 16 129/70 H 91 L 05/13/18 15:26 05/13/18 15:26 05/13/18 15:26 05/13/18 15:26 05/13/18 15:26 Microbiology 05/08/18 11:03 Blood Culture - Final Blood Laboratory Results 05/10/18 04:20 05/13/18 03:30 05/12/18 05/13/18 05/14/18 05:59 05:59 05:59 Intake Total 805 1290 Output Total 1100 900 900 Balance -295 390 -900 PT 13.4 SEC (12.0-15.0) 05/10/18 04:20 INR 1.00 (0.83-1.16) 05/10/18 04:20 - Physical Exam Constitutional: no apparent distress, appears nourished, not in pain Eyes: PERRL, anicteric sclera, EOMI Ears, Nose, Mouth, Throat: moist mucous membranes, hearing normal, ears appear normal, no oral mucosal ulcers Cardiovascular: regular rate and rhythym, no murmur, rub, or gallop Respiratory: no respiratory distress, no rales or rhonchi, clear to auscultation Gastrointestinal: normoactive bowel sounds, soft, non-tender abdomen, no palpable masses Genitourinary: no bladder fullness, no bladder tenderness, no renal bruits Skin: no rashes or abrasions, no fluctuance, no induration Musculoskeletal: full muscle strength, no muscle tenderness, normal joint ROM Neurologic: AAOx3, sensation intact bilaterally Psychiatric: interacting appropriately, not anxious, not encephalopathic, thought process linear Lymph, Heme, Immunologic: no cervical LAD, no supraclavicular LAD ICD10 Worksheet Patient Problems: Problems Problem Status Onset Lower extremity edema Acute Pleural effusion Acute chronic disease [facility]/transitional care Acute Arthrodesis status Acute Cervical radiculitis Acute Depression Acute Facial laceration Acute Hypertension Acute Neck pain Acute Tremor Acute Unsteady gait Acute
[2018-05-13] MEDS ORDERED: POTASSIUM CL 10 MEQ TAB PO ONE (19:23)
[2018-05-14 07:48] VITALS: BP 122/77
[2018-05-14] MEDS: ENOXAPARIN 40 MG/0.4 ML SYR SC SCH (09:04)
[2018-05-14] MEDS: METOPROLOL TARTRATE 25 MG TAB PO SCH (09:04)
[2018-05-14] MEDS: PANTOPRAZOLE SODIUM 40 MG TAB PO SCH (09:05)
[2018-05-14] MEDS: ESCITALOPRAM OXALATE 10 MG TAB PO SCH (09:05)
[2018-05-14] MEDS: LISINOPRIL 10 MG TAB PO SCH (09:05)
[2018-05-14] MEDS: SENNOSIDES/DOCUSATE SODIUM TAB PO SCH (09:05)
[2018-05-14] MEDS: FERROUS SULFATE 325 MG TAB PO SCH (09:05)
[2018-05-14] MEDS: SPIRONOLACTONE 25 MG TAB PO SCH (09:06)
[2018-05-14] MEDS: FUROSEMIDE 40 MG TAB PO SCH (09:06)
--- NOTE | 2018-05-14 12:49 | SOAPPROG ---
SOAP Progress Note Assessment/Plan: Assessment: 77-year-old female with really no known cardiovascular disease history who presents now with subacute hypoxic respiratory failure on the basis of what appears to be congestive heart failure. Her echocardiogram demonstrates severe pulmonary hypertension. Based on Doppler parameters this appears to be pulmonary arterial hypertension as indices of elevated left atrial pressures were not abnormal. It is not clear to me at the present time whether the echocardiographic assessment of her right ventricular systolic pressures is accurate as the Doppler profile of the tricuspid regurgitant jet was not optimal. During this hospitalization she has responded nicely to diuretic therapy with objective and subjective improvement. By examination she still has evidence of CHF with elevated neck veins and trace by pedal edema. 05/11/2018: At this point, she appears euvolemic. Based on her workup thus far , she appears to have pulmonary arterial hypertension. It does not appear that there is a contributing factor from left ventricular dysfunction or significant valvular disease. 05/12/2018: She is doing well today. She feels back to her baseline. I appreciate the input from pulmonology. 05/13/2018: Overall improved from yesterday. Constipation has resolved. Oxygen levels have likewise improved. Her chest x-ray from today indicates resolution of previously noted pleural effusions. 05/14/2018: She appears to be doing very well at the present time. I think she is at a point now where she can be discharged. Plan: Continue her current medications. Likely home this afternoon. Outpatient follow-up with pulmonology in myself within the next 1-2 weeks. 05/14/18 12:48 Subjective: She is doing much better today. She has not received any additional iron. She notes no nausea, vomiting or constipation and denies limiting symptoms of dyspnea. She had a net diuresis yesterday of about 1000 cc. Objective: Vital Signs Temp Pulse Resp BP Pulse Ox 36.9 C 76 16 122/77 H 97 05/14/18 07:47 05/14/18 07:47 05/14/18 07:47 05/14/18 07:47 05/14/18 07:47 Microbiology 05/08/18 11:03 Blood Culture - Final Blood Laboratory Results 05/14/18 10:30 05/14/18 03:30 05/13/18 05/14/18 05/15/18 05:59 05:59 05:59 Intake Total 1290 1140 Output Total 900 2200 Balance 390 -1060 PT 13.4 SEC (12.0-15.0) 05/10/18 04:20 INR 1.00 (0.83-1.16) 05/10/18 04:20 Physical Exam - Physical Exam General Appearance: alert, no apparent distress, thin EENT: PERRL/EOMI, normal ENT inspection, pharynx normal, TMs normal Neck: non-tender, full range of motion, supple, normal inspection Respiratory: chest non-tender, lungs clear, normal breath sounds Cardiac/Chest: normal peripheral pulses, regular rate, rhythm, No edema Peripheral Pulses: 2+: carotid (R), carotid (L), femoral (R), femoral (L), dorsalis-pedis (R), dorsalis-pedis (L) Abdomen: normal bowel sounds, non-tender, soft Pelvic Exam: deferred Rectal: deferred Back: Normal inspection Skin: normal color, warm/dry Lymphatic: no adenopathy Extremities: normal range of motion, non-tender, normal inspection, normal capillary refill Neuro/Psych: no motor/sensory deficits, alert, normal mood/affect, oriented x 3 ICD10 Worksheet Patient Problems: Problems Problem Status Onset chronic disease mgmt/transitional care Acute Cervical radiculitis Acute Neck pain Acute Arthrodesis status Acute Tremor Acute Unsteady gait Acute Hypertension Acute Depression Acute Facial laceration Acute Pleural effusion Acute Lower extremity edema Acute
--- NOTE | 2018-05-14 13:03 | PDIAF ---
- Diagnosis Code Status: Full Code - Medication Management Discharge Medications: electronically signed and located in the Home Medication List. - Orders Services needed: Home Care, Registered Nurse, Physical Therapy Home Care Face to Face: I certify that this patient was under my care and that I had the required [id number] encounter meeting the encounter requirements on the discharge day. My findings support the fact that the patient is homebound as defined in Home Care Face to Face Continued: CMS Chapter 7 Medicare Benefits Manual 30.1.1 , The condition of the patient is such that there exists a normal inability to leave home and consequently, leaving home would require a considerable and taxing effort. Isolation Type: None Diet Recommendation: no restrictions on diet Diet Texture: Regular Texture Diet Additional Instructions: Activity as tolerated. Take your medications as tolerated. Follow up with pulmonology for your pulmonary hypertension. follow up with cardiology as well. - Follow Up Care Current Providers and Referrals: Rudy Milton MD [Medical Doctor] - 05/21/18 11:00 am (arrive 15" early to fill out forms) AN GALLAGHER MD [Primary Care Provider] - As per Instructions Jean Carlos Fritz MD [Medical Doctor] -
--- NOTE | 2018-05-14 14:12 | ASMTLACE ---
LACE Length of stay for Answers: 4-6 days current admission Acuity / Level of Answers: Yes Care: Did the patient have an inpatient admission? Comorbidities - select Answers: Opioid dependence all that apply / Chronic pain Other Notes: HTN # of Emergency department Answers: 1-2 visits in the last 6 months Social determinants Answers: Mental health diagnosis (anxiety, depression, pers onality disorders, etc.) Score: 16 Date Signed: 05/14/2018 02:12 PM Electronically Signed By:Allyson Valdez RN
--- NOTE | 2018-05-14 14:14 | ASMTDCNOTE ---
Case Management Discharge Discharge Order Complete? Answers: Yes Patient to Obtain Answers: via Family Medications Transportation Arranged Answers: Family/Friends Faxed Final Orders Answers: Yes Agency/Facility Transfer Answers: Yes Report Printed & Faxed to Receiving Agency Discharge Comments Notes: 05/14/2018 Case Management Note Discharged home with [facility] RN PT. Faxed final orders. Date Signed: 05/14/2018 02:14 PM Electronically Signed By:Allyson Valdez RN
--- NOTE | 2018-05-14 14:17 | ASDISCHSUM ---
Discharge Information Plan Status:Home with No Needs Medically Cleared to Leave:05/13/2018 Discharge Date:05/13/2018 CM D/C Disposition:Home, Routine, Self-Care ADT D/C Disposition:Home, Routine, Self-Care Projected Discharge Date:05/13/2018 11:00 AM Transportation at D/C: Discharge Delay Reason: Follow-Up Date:05/13/2018 11:00 AM Discharge Slot: Final Diagnosis: Placement Information Referral Type:*Home Health Care Services Referral ID:[id number] Provider Name:[facility] [address] [place] [address] Address 2: City:[place] Selection Factors: State:[place] Patient Contact Information Contact Name:WOODY Relationship:Son Address:[address] Work Phone: City:[place] Alternate Phone: [facility]/Zip Code:[place] [address] Email: Financial Information Financial Class:Medicare Primary Plan Desc:MEDICARE INPATIENT Primary Plan Number:[id number] Secondary Plan Desc:[employer] [facility] Secondary Plan Number:[id number] Assessment Information LACE LACE Length of stay for Answers: 4-6 days current admission Acuity / Level of Answers: Yes Care: Did the patient have an inpatient admission? Comorbidities - select Answers: Opioid dependence all that apply / Chronic pain Other Notes: HTN # of Emergency department Answers: 1-2 visits in the last 6 months Social determinants Answers: Mental health diagnosis (anxiety, depression, pers onality disorders, etc.) Score: 16 Date Signed: 05/14/2018 02:12 PM Electronically Signed By:Allyson Valdez RN [facility] CM Progress Note CM Note CM Note Notes: 05/09/2018 Case Management Note Discussed pt during rounds. Pt admitted for pleural effusion, increasing lower extremity edema, and SOB. 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 There are no therapy evals ordered at this time. Pt is independent in ADL's prior to admission. Case Management d/c poc: anticipating independent with follow up as directed. Case Management to follow. Date Signed: 05/09/2018 01:52 PM Electronically Signed By:Allyson Valdez RN [facility] CM Progress Note CM Note CM Note Notes: Spoke with pt in the room. PT is now recommending home care, pt is amenable and understands she needs to be home bound to qualify. Pt lives alone and son is caring for her dog. [facility] has accepted pt. Referral sent. CM to follow. D/C Plan: [facility] PT/OT Date Signed: 05/11/2018 04:25 PM Electronically Signed By:Carlie Fragoso Case Management Discharge Plan Note Case Management Discharge Discharge Order Complete? Answers: Yes Patient to Obtain Answers: via Family Medications Transportation Arranged Answers: Family/Friends Faxed Final Orders Answers: Yes Agency/Facility Transfer Answers: Yes Report Printed & Faxed to Receiving Agency Discharge Comments Notes: 05/14/2018 Case Management Note Discharged home with [facility]UN PT. Faxed final orders. Date Signed: 05/14/2018 02:14 PM Electronically Signed By:Allyson Valdez RN Intervention Information Intervention Type:*IM-Signed Date of Service:05/14/2018 12:44 PM Patient Type:Inpatient Staff Member:Nicolasa Monahan Hours: Discipline: Severity: Comment:
--- NOTE | 2018-05-14 14:59 | PDHOMEO2F ---
Home Oxygen Face to Face Home Orders: I certify that a physician or a nurse practitioner or physician's assistant food service manager has had a [id number] encounter with this patient on the date of this order due to the diagnosis listed, which relates to the primary reason the patient requires home oxygen. Alternative treatments have been tried, or considered, and deemed ineffective. It is anticipated that supplemental oxygen will result in improvement with treatment. Home oxygen qualifying diagnosis: hypoxia SpO2 on room air (%): 85% Frequency of home oxygen needed: with activity Home oxygen liters per minute: 2 Home oxygen delivery device: nasal cannula Concentrator: Yes E-tanks for mobility and back up: Yes If ordering portable O2, is the patient mobile in the home?: Yes I certify that, based on these findings, the home oxygen is medically necessary for this patient for the following length of time. Length of time home oxygen needed: 1 month
[2018-05-14] MEDS: HYDROCODONE/APAP 5/325 TAB PO PRN (15:20)
--- NOTE | 2018-05-14 17:12 | PDDCSUM ---
Discharge Summary Discharge Summary: The patient is an 85-year-old female with past medical history of CHF who was admitted with an acute on chronic hypoxemic respiratory failure. She had bilateral pleural effusions and appear fluid overloaded on admission. She was started on Lasix for diuresis which she responded to well her oxygen needs went from 5 L to but per minute down to room air. An echocardiogram was obtained which showed a right ventricular systolic pressure of 80 with moderate to severe tricuspid regurg and grade 1 diastolic dysfunction She underwent a right heart catheterization which did confirm severe pulmonary hypertension. Cardiology was consulted who recommended continuing diuresis. Pulmonology was also consulted and patient was referred for outpatient follow-up for continued management of her pulmonary hypertension. Discharge diagnosis Pulmonary hypertension Right heart failure in setting of pulmonary hypertension Acute on chronic hypoxemic respiratory failure Normocytic anemia Follow-up With Cardiology and pulmonology Over 35 min were spent on the discharge of this patient including arranging follow-up appointments discussing discharge with family and planning discharge
== END 2018-05-14 15:27 | disposition home health service (06) | DRG 286 ==
LOC: OBSVTOIN 10:41 → F2W 11:35
PROVIDERS: ADMIT Student in an Organized Health Care Education/Training Program; ATTEND Student in an Organized Health Care Education/Training Program
PROC: 4A023N6 Measurement of Cardiac Sampling and Pressure, Right Heart, Percutaneous Approach (ICD-10-PCS; principal; 2018-05-10)
DX: I50.811 Acute right heart failure (principal); J96.21 Acute and chronic respiratory failure with hypoxia; J90 Pleural effusion, not elsewhere classified; I27.29 Other secondary pulmonary hypertension; I07.1 Rheumatic tricuspid insufficiency; D50.9 Iron deficiency anemia, unspecified; G47.33 Obstructive sleep apnea (adult) (pediatric); Z85.3 Personal history of malignant neoplasm of breast
CPT/HCPCS: 84484-ER; 96374; 97116-GP; 97161-GP; C1769; J1644; J1650; J1940; J2250; J2405; J2916; J3010; Q9967

== ENCOUNTER → 2018-05-21 | Outpatient (CLI) | payer OTHER | LOC: FIMAGING 12:18 | PROVIDERS: ATTEND Internal Medicine Pulmonary Disease | DX: R06.09 Other forms of dyspnea (principal); I50.810 Right heart failure, unspecified; D64.9 Anemia, unspecified ==

== ENCOUNTER 2018-05-31 13:24 | Day surgery (SDC) | payer OTHER ==
[2018-05-31] MEDS ORDERED: NS 1,000 ML IV ONE (13:46)
[2018-05-31] MEDS: LIDOCAINE 1% 2 ML INJ ID PRN ×2 (14:02→14:08)
--- NOTE | 2018-05-31 15:03 | PDANEPAE ---
ANE History of Present Illness 77 yo for egd/colonoscopy ANE Past Medical History - Cardiovascular History Hx Hypertension: Yes Hx Arrhythmias: No Hx Coronary Artery / Peripheral Vascular Disease: No Hx CHF / Valvular Disease: Yes Cardiovascular History Comment: denies chest pain, palp, family hx early onset - Pulmonary History Hx COPD: No Hx Asthma/Reactive Airway Disease: No Hx Recent Upper Respiratory Infection: No Hx Oxygen in Use at Home: Yes Hx Sleep Apnea: Yes Pulmonary History Comment: denies sob up 2 flights - Neurologic History Hx Cerebrovascular Accident: No Hx Seizures: No Hx Dementia: No Neurologic History Comment: r arm tingling, numbness. foot drop,l. migraines. cervical stenosis- current. - Endocrine History Hx Diabetes: No - Renal History Hx Renal Disorders: No - Liver History Hx Hepatic Disorders: No - Neurological & Psychiatric Hx Hx Neurological and Psychiatric Disorders: Yes Neurological / Psychiatric History Comment: depression- on meds. - Cancer History Hx Cancer: Yes Cancer History Comment: hx breast ca- lumpectomy, had radiation-intramammarily 2007. - Congenital Disorder History Hx Congenital Disorders: No - GI History Hx Gastrointestinal Disorders: No - Other Health History Other Health History: r shoulder rotator cuff tear r/t snowboarder accident. hx wrist fx. arthritis. r knee torn acl. - Chronic Pain History Chronic Pain: No (joints) - Surgical History Prior Surgeries: synovial cyst removal l4-5. r shoulder surgery x 4. l shoulder replacement. l lumpectomy. l wrist orif. ANE Review of Systems Review of Systems: - Exercise capacity METS (RN): 3 METS ANE Patient History - Allergies Allergies/Adverse Reactions: ibuprofen [From Motrin] Allergy (Verified 05/28/18 17:08) HIGH BLOOD PRESSURE beta blockers Allergy (Uncoded 05/28/18 17:08) raynauds symptoms in hands bone cement Allergy (Uncoded 05/28/18 17:08) - Home Medications Home Medications: Escitalopram Oxalate [Lexapro] 05/08/18 [Last Taken 05/31/18 09:00] Fluticasone Nasal [Flonase Nasal [place]] 05/08/18 [Last Taken 05/30/18 22:00] Herbals/Supplements -Info Only 05/08/18 [Last Taken 05/24/18] Hydrocodone/APAP 5/325 [[place] 5/325 (*)] BID PRN 05/08/18 [Last Taken 05/24/18] Ibandronate Sodium [Boniva] Q30D 05/08/18 [Last Taken 05/14/18] Lisinopril [Zestril 10 mg (*)] 05/08/18 [Last Taken 05/31/18 09:00] Ferrous Sulfate [Ferrous Sulf 325 MG (*)] 05/28/18 [Last Taken 05/29/18] Furosemide [Lasix 40 MG (*)] 05/28/18 [Last Taken 05/31/18 09:00] Spironolactone [Aldactone 25 MG (*)] 05/28/18 [Last Taken 05/30/18 09:00] - NPO status NPO Since - Liquids (Date): 05/31/18 NPO Since - Liquids (Time): 10:00 NPO Since - Solids (Date): 05/29/18 NPO Since - Solids (Time): 09:00 - Smoking Hx Smoking Status: Never smoked - Family Anes Hx Family Hx Anesthesia Complications: none ANE Labs/Vital Signs - Vital Signs Blood Pressure: 143/90 Heart Rate: 74 Respiratory Rate: 16 O2 Sat (%): 95 Height: 5 ft Weight: 54.431 kg ANE Physical Exam - Airway Neck exam: spinal fusion Mallampati Score: Class 2 Mouth exam: normal dental/mouth exam - Pulmonary Pulmonary: no respiratory distress - Cardiovascular Cardiovascular: regular rate and rhythym - ASA Status ASA Status: III ANE Anesthesia Plan Anesthesia Plan: general endotracheal anesthesia
[2018-05-31] MEDS ORDERED: fentaNYL 100 MCG/2 ML INJ ONE (15:06)
[2018-05-31] MEDS ORDERED: REMIFENTANIL HCL 1 MG VIAL ONE (15:06)
[2018-05-31] MEDS ORDERED: PROPOFOL/EMULSION 500 MG/50 ML BOTTLE IV ONE (15:07)
--- NOTE | 2018-05-31 15:07 | PDGENHP ---
History & Physical Chief Complaint: iron deficiency anemia History of Present Illness: 77 year old female with pulm htn present for evaluation of iron deficiency anemia as well as abnormal imaging. Pertinent Past, Social, Family History: PMHx; iron def, pulm htn,. See anesthesiology note for details. Relevant Physical Exam: HEENT: anicteric. CV; RRR +s1s2. lungs; CTAB. Abd: soft, nt, + bs Cardiorespiratory Assessment: ASA 3
[2018-05-31] MEDS ORDERED: NS 500 ML IV SCH (15:15)
[2018-05-31] MEDS ORDERED: SUGAMMADEX SODIUM 200 MG/2 ML VIAL IVP ONE (15:45)
[2018-05-31] MEDS ORDERED: NALOXONE HCL 0.4 MG/ML INJ IVP PRN (15:55)
--- NOTE | 2018-05-31 16:25 | GIREPORT ---
[facility] - Endoscopy Department Patient Name: Evie Marie Procedure Date: 05/31/2018 3:03 PM Patient Type: Outpatient Attending MD/ ER Physician: Juan Varghese MD Procedure: Upper EUS Indications: Epigastric abdominal pain, Heartburn, Abnormal CT of the GI tract, Naus ea with vomiting Patient Profile: 77 year old female presents for evaluation of epigastric abdominal pain , nausea with vomiting, heartburn as well as abnormal imaging. She had a CT scan which revealed a dilated PD. Providers: Juan Varghese MD Medicines: General Anesthesia Complications: No immediate complications. Estimated blood loss: Minimal. Description of Procedure: After obtaining informed consent, the endoscope was passed under direct vision. Throughout the procedure, the patient's blood pressure, pulse, and oxygen saturations were monitored continuously. The Endosonoscope was introduced through the mouth, and advanced to the second part of duoden um. The Endoscope was introduced through the mouth, and advanced to the sec ond part of duodenum. The upper EUS was accomplished without difficulty. Th e esophagus, stomach, and duodenum were visualized endosonographically. T he patient tolerated the procedure well. Findings: Endoscopic Finding : The lumen of the esophagus was moderately dilated. No stricture noted. A medium-sized hiatal hernia was present. Patchy mildly erythematous mucosa was found in the gastric body and in the gastric antrum. Biopsies were taken with a cold forceps for histology. The examined duodenum was normal. Biopsies for histology were taken wit h a cold forceps for evaluation of celiac disease. Endosonographic Finding : The pancreatic duct had a dilated endosonographic appearance in the pancreatic head. The pancreatic duct measured up to 4 mm in diameter. The pancreatic duct had a prominently branched endosonographic appearan ce and had hyperechoic wolf in the entire pancreas. Pancreatic parenchymal abnormalities were noted in the entire pancreas. These consisted of hyperechoic foci. There was no sign of significant endosonographic abnormality in the com mon bile duct. A cyst was found in the visualized portion of the liver. The cyst was anechoic. No lymphadenopathy seen. Estimated Blood Loss: Estimated blood loss was minimal. Post Op Diagnosis: - Dilation in the entire esophagus. - Medium-sized hiatal hernia. - Erythematous mucosa in the gastric body and antrum. Biopsied. - Normal examined duodenum. Biopsied. - The pancreatic duct had a dilated endosonographic appearance in the pancreatic head. The pancreatic duct measured up to 4 mm in diameter. - The pancreatic duct had a prominently branched endosonographic appear ance and had hyperechoic wolf in the entire pancreas. - Pancreatic parenchymal abnormalities consisting of hyperechoic foci w ere noted in the entire pancreas. - There was no sign of significant pathology in the common bile duct. - A cyst was found in the visualized portion of the liver. - Etiology? No cause of iron deficiency anemia or symptoms seen. Parenc hymal changes in the pancreas. Recommendation: - Perform a colonoscopy today. - More recs on colonoscopy report. - Await path results. - PPI therapy - Antireflux lifestyle. - Thank you for allowing me to participate in the care of your patient. Attending Participation: I personally performed the entire procedure. Juan Varghese MD Juan Varghese MD 05/31/2018 4:24:54 PM This report has been signed electronicallyJuan Varghese MD Number of Addenda: 0 Note Initiated On: 05/31/2018 3:03 PM [email or web address]
--- NOTE | 2018-05-31 16:36 | GIREPORT ---
[facility] Surgical Services - Endoscopy Department Patient Name: Evie Marie Procedure Date: 05/31/2018 3:14 PM Patient Type: Outpatient Attending MD/ ER Physician: Juan Varghese MD Procedure: Colonoscopy Indications: Abnormal CT of the GI tract Patient Profile: Mary Grace is an 77 year old female who presents for evaluation of abnormal imaging. She had a CT scan which revealed a possible cecal mass. Providers: Juan Varghese MD Medicines: Monitored Anesthesia Care Complications: No immediate complications. Estimated blood loss: Minimal. Description of Procedure: After obtaining informed consent, the scope was passed under direct vis ion. Throughout the procedure, the patient's blood pressure, pulse, and oxyg en saturations were monitored continuously. The Colonoscope with irrigatio n channel was introduced through the anus and advanced to the cecum, identified by appendiceal orifice and ileocecal valve. The colonoscopy was performed without difficulty. The patient tolerated the procedure well. The quality of the bowel preparation was good. The ileocecal valve, appendi ceal orifice, and rectum were photographed. Findings: The perianal and digital rectal examinations were normal. Pertinent negatives include no palpable rectal lesions. A fungating large mass was found appendiceal orifice. This was biopsied with a cold forceps for histology. Estimated Blood Loss: Estimated blood loss was minimal. Post Op Diagnosis: - Likely malignant tumor at the appendiceal orifice. Biopsied. 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 Recommendation: - Discharge patient to home (with escort). - The signs and symptoms of potential delayed complications were discus sed with the patient. - Patient has a contact number available for emergencies. - Return to normal activities tomorrow. - Resume previous diet. - Continue present medications. - Await pathology results. - Repeat colonoscopy in 1 year for surveillance. - Oncology referral. - Thank you for allowing me to participate in the care of your patient. Attending Participation: I personally performed the entire procedure. Juan Varghese MD Juan Varghese MD 05/31/2018 4:35:47 PM This report has been signed electronicallyJuan Varghese MD Number of Addenda: 0 Note Initiated On: 05/31/2018 3:14 PM Total Procedure Duration Time 0 hours 30 minutes 0 seconds [email or web address]
[2018-05-31 17:07] VITALS: BP 163/88
--- NOTE | 2018-05-31 18:23 | POSTANESTH ---
Post Anesthetic Evaluation Cardiovascular Status: Normal, Stable Respiratory Status: Normal, Stable Level of Consciousness/Mental Status: Can Participate in Eval Pain Control: Adequate, Prn Tx Ordered Nausea/Vomiting Control: Adequate, Prn Tx Ordered Complications Possibly Related to Anesthesia: None Noted
== END 2018-05-31 17:35 | disposition home or self-care (01) ==
LOC: FSGY 13:24
PROVIDERS: ATTEND Internal Medicine Gastroenterology
DX: R93.3 Abnormal findings on diagnostic imaging of other parts of digestive tract (principal); D50.9 Iron deficiency anemia, unspecified; K22.8 Other specified diseases of esophagus; K86.89 Other specified diseases of pancreas; K76.89 Other specified diseases of liver; R10.13 Epigastric pain; I27.20 Pulmonary hypertension, unspecified; I50.810 Right heart failure, unspecified; I11.0 Hypertensive heart disease with heart failure; G47.33 Obstructive sleep apnea (adult) (pediatric); I73.00 Raynaud's syndrome without gangrene; J96.11 Chronic respiratory failure with hypoxia; K44.9 Diaphragmatic hernia without obstruction or gangrene; F32.9 Major depressive disorder, single episode, unspecified; Z85.3 Personal history of malignant neoplasm of breast; Z96.612 Presence of left artificial shoulder joint; Z96.611 Presence of right artificial shoulder joint; Z98.1 Arthrodesis status
CPT/HCPCS: J2704; J3010

== ENCOUNTER → 2018-06-01 | Outpatient (CLI) | payer OTHER | LOC: BHFA 09:15 | PROVIDERS: ATTEND Internal Medicine Cardiovascular Disease | DX: I27.20 Pulmonary hypertension, unspecified (principal) ==

== ENCOUNTER 2018-06-11 06:02 | Inpatient (IN) | payer OTHER ==
[2018-06-11] MEDS ORDERED: LR 1,000 ML IV ONE (06:18)
--- NOTE | 2018-06-11 06:51 | PDANEPAE ---
ANE History of Present Illness here for ASC colectomy ANE Past Medical History - Cardiovascular History Hx Hypertension: Yes Hx Arrhythmias: No Hx Chest Pain: No Hx Coronary Artery / Peripheral Vascular Disease: No Hx CHF / Valvular Disease: Yes Hx Palpitations: No Cardiovascular History Comment: denies chest pain, palp, family hx early onset - Pulmonary History Hx COPD: No Hx Asthma/Reactive Airway Disease: No Hx Recent Upper Respiratory Infection: No Hx Oxygen in Use at Home: Yes Hx Sleep Apnea: Yes Sleep Apnea Screening Result - Last Documented: Positive Pulmonary History Comment: denies sob up 2 flights. PULM HTN. POS KRISTIE - O2 NOC W/CPAP - Neurologic History Hx Cerebrovascular Accident: No Hx Seizures: No Hx Dementia: No Neurologic History Comment: MIGRAINES. BACK & NECK SURGERIES - Endocrine History Hx Diabetes: No Endocrine History Comment: raynauds symptoms with beta blockers - Renal History Hx Renal Disorders: No - Liver History Hx Hepatic Disorders: No - Neurological & Psychiatric Hx Hx Neurological and Psychiatric Disorders: Yes Neurological / Psychiatric History Comment: depression- on meds. - Cancer History Hx Cancer: Yes Cancer History Comment: hx breast ca- lumpectomy, had radiation-intramammarily 2007. - Congenital Disorder History Hx Congenital Disorders: No - GI History Hx Gastrointestinal Disorders: No Gastrointestinal History Comment: n/v currently. possible polyp on colon when she had her CT done - Other Health History Other Health History: r shoulder rotator cuff tear r/t snowboarder accident. hx wrist fx. arthritis. r knee torn acl. - Chronic Pain History Chronic Pain: No (joints) - Surgical History Prior Surgeries: COLONOSCOPY & ENDOSCOPY. synovial cyst removal l4-5. r shoulder surgery x 4. l shoulder replacement. l lumpectomy. l wrist orif. ANE Review of Systems Review of systems is: negative Review of Systems: - Exercise capacity METS (RN): 4 METS ANE Patient History - Allergies Allergies/Adverse Reactions: ibuprofen [From Motrin] Allergy (Verified 05/28/18 17:08) HIGH BLOOD PRESSURE beta blockers Allergy (Uncoded 05/28/18 17:08) raynauds symptoms in hands bone cement Allergy (Uncoded 05/28/18 17:08) - Home Medications Home medications: home medication list seen and reviewed Home Medications: Escitalopram Oxalate [Lexapro] 20 mg PO DAILY 05/08/18 [Last Taken 06/11/18] Fluticasone Nasal [Flonase Nasal [place]] 1 spray EACHNARE HS 05/08/18 [Last Taken 06/10/18] Hydrocodone/APAP 5/325 [[place] 5/325 (*)] 1 tab PO BID PRN 05/08/18 [Last Taken 06/10/18] Ibandronate Sodium [Boniva] 150 mg PO Q30D 05/08/18 [Last Taken 06/08/18] Lisinopril [Zestril 10 mg (*)] 10 mg PO DAILY 05/08/18 [Last Taken 06/11/18] Ferrous Sulfate [Ferrous Sulf 325 MG (*)] 325 mg PO DAILY 05/28/18 [Last Taken 06/09/18] Furosemide [Lasix 40 MG (*)] 40 mg PO DAILY 05/28/18 [Last Taken 06/10/18] Spironolactone [Aldactone 25 MG (*)] 25 mg PO DAILY 05/28/18 [Last Taken ] Azelastine [Astelin Nasal [place] (RX)] 1 sprays EACHNARE BID 06/08/18 [Last Taken 06/10/18] Modafinil [Provigil 100 mg (*)] 50 - 100 mg PO DAILY PRN 06/08/18 [Last Taken ] - NPO status NPO Status: no food or drink >8 hours NPO Since - Liquids (Date): 06/10/18 NPO Since - Liquids (Time): 23:45 NPO Since - Solids (Date): 06/09/18 NPO Since - Solids (Time): 18:00 - Smoking Hx Smoking Status: Never smoked - Family Anes Hx Family Hx Anesthesia Complications: none ANE Labs/Vital Signs - Vital Signs Vital Signs: reviewed preoperatively; see RN documention for details Blood Pressure: 122/68 Heart Rate: 81 Respiratory Rate: 20 O2 Sat (%): 95 Height: 152.4 cm Weight: 52.617 kg ANE Physical Exam - Airway Neck exam: FROM Mallampati Score: Class 1 - Pulmonary Pulmonary: no respiratory distress - Cardiovascular Cardiovascular: regular rate and rhythym - ASA Status ASA Status: III ANE Anesthesia Plan Anesthesia Plan: general endotracheal anesthesia
[2018-06-11] MEDS ORDERED: MIDAZOLAM 2 MG/2 ML VIAL IVP ONE (06:59)
[2018-06-11] MEDS ORDERED: PROPOFOL/EMULSION 500 MG/50 ML BOTTLE IV ONE (07:09)
[2018-06-11] MEDS ORDERED: fentaNYL 100 MCG/2 ML INJ ONE ×3 (07:12→10:07)
[2018-06-11] MEDS ORDERED: cefOXitin SODIUM 2 GM in NS 100 ML IV ONE (07:15)
[2018-06-11] MEDS ORDERED: BUPIVACAINE 0.5% 30 ML SDV ONE (07:20)
[2018-06-11] MEDS ORDERED: ePHEDrine SULFATE 25 MG/5 ML SYR ONE ×2 (07:34→08:09)
[2018-06-11] MEDS ORDERED: HYDROmorphONE/DILAUDID 2 MG/ML INJ IVP PRN (07:47)
[2018-06-11] MEDS ORDERED: NALOXONE HCL 0.4 MG/ML INJ IVP PRN (07:47)
[2018-06-11] MEDS ORDERED: DEXAMETHASONE 4 MG/ML VIAL IVP PRN (07:47)
[2018-06-11] MEDS ORDERED: LABETALOL HCL 5 MG/ML 20 ML MDV IVP PRN (07:47)
[2018-06-11] MEDS ORDERED: ALBUTEROL 3 ML DEYVIAL IH PRN (07:47)
[2018-06-11] MEDS ORDERED: ONDANSETRON 4 MG/2 ML VIAL IVP PRN (07:47)
[2018-06-11] MEDS ORDERED: NS 500 ML IV PRN (07:47)
[2018-06-11] MEDS ORDERED: LR 500 ML IV PRN (07:47)
[2018-06-11] MEDS ORDERED: ROCURONIUM 50 MG/5 ML VIAL ONE (08:07)
[2018-06-11] MEDS ORDERED: PHENYLEPHRINE HCL 100 MCG/ML SYR ONE (08:08)
[2018-06-11] MEDS ORDERED: HEPARIN 1000 UNIT/1 ML MDV ONE (08:21)
[2018-06-11] MEDS ORDERED: ceFAZolin 1 GM/5 ML SYR ONE (08:22)
[2018-06-11] MEDS ORDERED: SUGAMMADEX SODIUM 200 MG/2 ML VIAL IVP ONE (09:10)
--- NOTE | 2018-06-11 09:30 | POSTOPPROG ---
Post Op Note Date of Operation: 06/11/18 Surgeon: Laron Lemus Teacher Citizenship: Antione Anesthesiologist: José Miguel Anesthesia: GET(General Endotracheal) Pre-op Diagnosis: Right colon mass, umbilical hernia Post-op Diagnosis: Same, suspicious umbilical mass Indication: same Procedure: Lap assisted R hemicolectomy, umbilical hernia repair, excisional bx umbili Findings: Clear margins on specimen, suspicious umbilical mass with dense fibrous tis Inf/Abcess present in the surg proc area at time of surgery?: No Depth: Organ Space EBL: 100-500 Specimen(s): R colon- fresh Umbilical mass- frozen
[2018-06-11] MEDS ORDERED: HYDROmorphONE/DILAUDID 1 MG/ML INJ IVP PRN (09:32)
[2018-06-11] MEDS ORDERED: PROMETHAZINE HCL 25 MG/ML INJ IVP PRN (09:34)
[2018-06-11] MEDS ORDERED: ACETAMINOPHEN 325 MG TAB PO PRN (09:37)
--- NOTE | 2018-06-11 09:50 | POSTANESTH ---
Post Anesthetic Evaluation Cardiovascular Status: Normal, Stable Respiratory Status: Normal, Stable Level of Consciousness/Mental Status: Mildly Sleepy, Arousable Pain Control: Adequate, Prn Tx Ordered Nausea/Vomiting Control: Adequate, Prn Tx Ordered Complications Possibly Related to Anesthesia: None Noted
[2018-06-11] MEDS: fentaNYL 100 MCG/2 ML INJ IVP PRN ×2 (10:10→12:04)
[2018-06-11] MEDS: D5W 1/2 NS W/ 20 KCl/L 1,000 ML IV SCH ×2 (14:04→23:28)
[2018-06-11] MEDS ORDERED: MODAFINIL 100 MG TAB PO PRN (15:02)
[2018-06-11] MEDS ORDERED: Ibandronate Sodium [Boniva] 150 MG PO SCH (15:15)
--- NOTE | 2018-06-11 15:54 | PDMN ---
Medical Necessity Medical necessity: [facility] IP only surgery; cpt 07995 Colectomy
--- NOTE | 2018-06-11 16:18 | SOAPPROG ---
SOAP Progress Note Assessment/Plan: Assessment: Postop check. Pt doing well. Pain controlled. Incision sites cdi. 06/11/18 16:17 Objective: Vital Signs Temp Pulse Resp BP Pulse Ox 36.6 C 83 18 137/61 H 97 06/11/18 15:25 06/11/18 15:25 06/11/18 15:25 06/11/18 15:25 06/11/18 15:25 ICD10 Worksheet Patient Problems: Problems Problem Status Onset Arthrodesis status Acute Cervical radiculitis Acute Depression Acute Facial laceration Acute Hypertension Acute Lower extremity edema Acute Neck pain Acute Pleural effusion Acute Tremor Acute Unsteady gait Acute chronic disease mgmt/transitional care Acute
[2018-06-11 16:43] LABS: PLATELET COUNT 202 10^3/uL (150-400)
[2018-06-11] MEDS: PROMETHAZINE HCL 25 MG TAB PO PRN (18:26)
[2018-06-11] MEDS: oxyCODONE IR 5 MG TAB PO PRN ×2 (18:27→23:27)
[2018-06-12] MEDS: FLUTICASONE NASAL 120 SPRAYS/16 GM MDI EACHNARE SCH ×2 (00:37→20:26)
[2018-06-12] MEDS: AZELASTINE NASAL MDI EACHNARE SCH ×3 (00:37→20:26)
[2018-06-12] MEDS: oxyCODONE IR 5 MG TAB PO PRN ×4 (03:27→18:00)
[2018-06-12] MEDS: PROMETHAZINE HCL 25 MG TAB PO PRN (03:50)
[2018-06-12 05:48] LABS: PLATELET COUNT 200 10^3/uL (150-400)
[2018-06-12] MEDS: FERROUS SULFATE 325 MG TAB PO SCH (09:09)
[2018-06-12] MEDS: ESCITALOPRAM OXALATE 10 MG TAB PO SCH (09:10)
[2018-06-12] MEDS: FUROSEMIDE 40 MG TAB PO SCH (09:10)
[2018-06-12] MEDS: LISINOPRIL 10 MG TAB PO SCH (09:10)
[2018-06-12] MEDS: SPIRONOLACTONE 25 MG TAB PO SCH (09:10)
[2018-06-12] MEDS: D5W 1/2 NS W/ 20 KCl/L 1,000 ML IV SCH ×2 (12:26→20:30)
--- NOTE | 2018-06-12 12:32 | SOAPPROG ---
SOAP Progress Note Assessment/Plan: Assessment/Plan: 77 year old woman s/p colectomy 06/11/2018 Pain control clears Acute blood loss anemia - stable monitor I & O encourage ambulation path pending S: no nausea, abdominal pain when laying flat. Has some shoulder pain post op. No flatus yet. O: pleasant, alert, NAD VSS Mucous membranes moist, normocephalic no increased WOB incision CDI hypoactive BS, non distended, nontender Plan: 06/12/18 12:28 06/12/18 12:33 06/12/18 12:35 06/12/18 13:45 Objective: Vital Signs Temp Pulse Resp BP Pulse Ox 36.9 C 84 18 129/64 H 98 06/12/18 11:08 06/12/18 11:08 06/12/18 11:08 06/12/18 11:08 06/12/18 11:08 Laboratory Results 06/12/18 05:10 06/12/18 05:10 06/11/18 06/12/18 06/13/18 05:59 05:59 05:59 Intake Total 1550 Output Total 326 450 Balance 1224 -450 ICD10 Worksheet Patient Problems: Problems Problem Status Onset Arthrodesis status Acute Cervical radiculitis Acute Depression Acute Facial laceration Acute Hypertension Acute Lower extremity edema Acute Neck pain Acute Pleural effusion Acute Tremor Acute Unsteady gait Acute chronic disease mgmt/transitional care Acute
--- NOTE | 2018-06-12 16:17 | ASMTCMCOM ---
CM Note CM Note Notes: Pt in for scheduled surgery for cecal mass, no therapies ordered. Anticipate she will dc home when medically stable, CM available for any changes. DC Plan: Independent Date Signed: 06/12/2018 04:17 PM Electronically Signed By:Dorie Olivas RN
--- NOTE | 2018-06-12 22:42 | GOP ---
[f rep st] OPERATIVE REPORT DATE OF OPERATION: 06/11/2018 SURGEON: Laron Lemus MD [facility] NURSE: Cathy Talbot NP. ANESTHESIOLOGIST: Dr. Valdez. PREOPERATIVE DIAGNOSIS: Adenocarcinoma of the cecum. POSTOPERATIVE DIAGNOSIS: Adenocarcinoma of the cecum. PROCEDURE PERFORMED: 1. Right partial colectomy. 2. Excision of an umbilical nodule. 3. Repair of umbilical hernia. FINDINGS: The patient was found to have a 1 cm suspicious nodule and an umbilical hernia defect. Sh e had a 2.5 to 3 cm tumor at the cecum at the appendiceal orifice. The appendix itself was essential ly withered up. ESTIMATED BLOOD LOSS: 300 cc. DESCRIPTION OF PROCEDURE: The patient was brought to the operating room where she received satisfact ory general endotracheal anesthesia by Dr. Valdez. She was placed in the supine position and prepped and draped in the usual sterile fashion. A periumbilical incision was made. A Veress needle was in serted. Pneumoperitoneum was established. A trocar was introduced, laparoscope introduced. Good vi sualization was obtained. Three other trocars placed in the abdomen under direct vision. The right colon was mobilized. The cecum, appendix, and terminal ileum were all freed up laterally with the Jensen rmonic Scalpel. The right colon was mobilized around the hepatic flexure and this freed up. The mes entery was then entered with the Harmonic Scalpel and divided. There was a significant amount of ble eding encountered from the right colic artery which failed to be controlled adequately with the initi al division by the Harmonic Scalpel. This was eventually controlled with hemoclips and then further application of the Harmonic Scalpel until blood loss was controlled. The remainder of the mesentery of the right colon was then divided with the Harmonic Scalpel. After adequate mobilization, the woun d was irrigated and suctioned clear, and then a periumbilical incision was made, extended somewhat ce phalad in the midline. The wound was protected with an Howard wound protector, and the right colon w as brought out through this incision. The transverse colon was divided with a LETHA stapler as was the terminal ileum. The specimen was removed and sent to Pathology. The mesentery was reapproximated w ith running 3-0 Vicryl suture, and then a dubv-ew-rauf anastomosis was made between the terminal ileu m and the right transverse colon with a LETHA stapler and a close application of the stapler to close t he defect. The suture line was reinforced with interrupted 3-0 silk sutures, and the mesentery closu re was completed. The wound was copiously irrigated. Hemostasis was assured. The liver was well ex amined. 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 The umbilical hernia was then exposed. There was a hard nodule in the umbilical her opal sac, and it was elected to excise the skin and nodule along with the umbilical hernia sac. This was done with an elliptical incision and sent to Pathology and thought to be suspicious for possible metastasis. Final path is pending. The wound was then closed in layers using running #1 PDS suture for the linea alba with reinforcement at the umbilical hernia site. The was closed with 3 -0 Vicryl and the skin with a 4-0 Monocryl subcuticular stitch. Trocar sites were closed with 4-0 Mo nocryl subcuticular sutures. All layers were infiltrated with 0.5% Marcaine. She tolerated procedur e well and was taken to the recovery room in good condition. There were no complications. Copy requested to: Dr. Varghese /[id number]/MODL
[2018-06-13] MEDS: oxyCODONE IR 5 MG TAB PO PRN ×3 (01:35→19:40)
[2018-06-13 05:42] LABS: PLATELET COUNT 194 10^3/uL (150-400)
[2018-06-13] MEDS: AZELASTINE NASAL MDI EACHNARE SCH ×2 (08:24→19:43)
[2018-06-13] MEDS: LISINOPRIL 10 MG TAB PO SCH (08:24)
[2018-06-13] MEDS: FUROSEMIDE 40 MG TAB PO SCH (08:25)
[2018-06-13] MEDS: ESCITALOPRAM OXALATE 10 MG TAB PO SCH ×3 (08:25→09:08)
[2018-06-13] MEDS: FERROUS SULFATE 325 MG TAB PO SCH (08:25)
[2018-06-13] MEDS: SPIRONOLACTONE 25 MG TAB PO SCH (08:25)
--- NOTE | 2018-06-13 11:22 | SOAPPROG ---
SOAP Progress Note Assessment/Plan: Assessment/Plan: 77 year old woman s/p colectomy 06/11/2018 Pain control clears Acute blood loss anemia - stable monitor I & O encourage ambulation and sitting out of bed path pending S: no nausea. Increased shoulder pain post op. No flatus yet. O: pleasant, alert, NAD VSS lungs CTA, no increased WOB HR regular incision CDI normoactive BS, non distended, nontender Plan: 06/12/18 12:28 06/12/18 12:33 06/12/18 12:35 06/12/18 13:45 06/13/18 11:19 Objective: Vital Signs Temp Pulse Resp BP Pulse Ox 36.9 C 89 20 167/92 H 95 06/13/18 11:12 06/13/18 11:12 06/13/18 11:12 06/13/18 11:12 06/13/18 11:12 Laboratory Results 06/13/18 05:17 06/13/18 05:17 06/12/18 06/13/18 06/14/18 05:59 05:59 05:59 Intake Total 1550 1640 Output Total 326 3430 900 Balance 1224 -1510 -900 ICD10 Worksheet Patient Problems: Problems Problem Status Onset Arthrodesis status Acute Cervical radiculitis Acute Depression Acute Facial laceration Acute Hypertension Acute Lower extremity edema Acute Neck pain Acute Pleural effusion Acute Tremor Acute Unsteady gait Acute chronic disease mgmt/transitional care Acute
[2018-06-13] MEDS: D5W 1/2 NS W/ 20 KCl/L 1,000 ML IV SCH (18:00)
[2018-06-13] MEDS: FLUTICASONE NASAL 120 SPRAYS/16 GM MDI EACHNARE SCH (19:51)
[2018-06-14] MEDS: oxyCODONE IR 5 MG TAB PO PRN ×3 (02:12→20:32)
[2018-06-14] MEDS: LISINOPRIL 10 MG TAB PO SCH (09:00)
[2018-06-14] MEDS: AZELASTINE NASAL MDI EACHNARE SCH ×2 (09:01→20:33)
[2018-06-14] MEDS: FERROUS SULFATE 325 MG TAB PO SCH (09:01)
[2018-06-14] MEDS: ESCITALOPRAM OXALATE 10 MG TAB PO SCH (09:01)
[2018-06-14] MEDS: FUROSEMIDE 40 MG TAB PO SCH (09:01)
[2018-06-14] MEDS: SPIRONOLACTONE 25 MG TAB PO SCH (09:01)
--- NOTE | 2018-06-14 09:32 | SOAPPROG ---
SOAP Progress Note Assessment/Plan: Assessment/plan: 77 y/o F s/p lap assisted R marlon colectomy and umbilical hernia repair POD #3 ABLA. H&H stable. Advance to light diet. Advised pt to go slow. Dispo: pending. Likely home in the next couple of days S: Doing well. Pain controlled. Tolerating clears. No flatus or BM yet. O: Alert Afebrile VSS RRR No increased WOB Abdomen: soft, attp, nondistended, normoactive BS 06/14/18 09:30 Objective: Vital Signs Temp Pulse Resp BP Pulse Ox 36.5 C 82 16 123/65 H 94 06/14/18 07:54 06/14/18 07:54 06/14/18 07:54 06/14/18 07:54 06/14/18 07:54 Laboratory Results 06/13/18 05:17 06/13/18 05:17 06/13/18 06/14/18 06/15/18 05:59 05:59 05:59 Intake Total 6673 6428 Output Total 0090 1655 500 [facility] -1510 -647 -500 ICD10 Worksheet Patient Problems: Problems Problem Status Onset Arthrodesis status Acute Cervical radiculitis Acute Depression Acute Facial laceration Acute Hypertension Acute Lower extremity edema Acute Neck pain Acute Pleural effusion Acute Tremor Acute Unsteady gait Acute chronic disease mgmt/transitional care Acute
[2018-06-14] MEDS: FLUTICASONE NASAL 120 SPRAYS/16 GM MDI EACHNARE SCH (20:32)
[2018-06-15] MEDS: oxyCODONE IR 5 MG TAB PO PRN (02:10)
[2018-06-15] MEDS: FERROUS SULFATE 325 MG TAB PO SCH (09:01)
[2018-06-15] MEDS: AZELASTINE NASAL MDI EACHNARE SCH (09:01)
[2018-06-15] MEDS: SPIRONOLACTONE 25 MG TAB PO SCH (09:01)
[2018-06-15] MEDS: LISINOPRIL 10 MG TAB PO SCH (09:01)
[2018-06-15] MEDS: ESCITALOPRAM OXALATE 10 MG TAB PO SCH (09:01)
[2018-06-15] MEDS: FUROSEMIDE 40 MG TAB PO SCH (09:01)
[2018-06-15 13:06] VITALS: BP 127/68
--- NOTE | 2018-06-15 13:32 | PDIAF ---
- Diagnosis Diagnosis: s/p partial colectomy Code Status: Full Code - Medication Management Discharge Medications: electronically signed and located in the Home Medication List. PICC Care - Routine: N/A - Orders Services needed: Registered Nurse, Physical Therapy, Occupational Therapy Isolation Type: None Diet Recommendation: no restrictions on diet Diet Texture: Regular Texture Diet Additional Instructions: No lifting over 15 lbs. Ok to shower. No baths. - Follow Up Care Current Providers and Referrals: Laron Lemus MD [Medical Doctor] - follow up in 2 weeks AN GALLAGHER MD [Primary Care Provider] -
--- NOTE | 2018-06-15 14:05 | ASMTLACE ---
LACE Length of stay for Answers: 4-6 days current admission Acuity / Level of Answers: Yes Care: Did the patient have an inpatient admission? Comorbidities - select Answers: Other Notes: HTN all that apply # of Emergency department Answers: 1-2 visits in the last 6 months Social determinants Answers: Mental health diagnosis (anxiety, depression, pers onality disorders, etc.) Score: 12 Date Signed: 06/15/2018 02:05 PM Electronically Signed By:PAULIE Alfaro
--- NOTE | 2018-06-15 14:10 | ASDISCHSUM ---
Discharge Information Plan Status:SNF Medically Cleared to Leave:06/14/2018 Discharge Date:06/14/2018 CM D/C Disposition: ADT D/C Disposition:Home, Routine, Self-Care Projected Discharge Date:06/15/2018 11:00 AM Transportation at D/C: Discharge Delay Reason: Follow-Up Date:06/15/2018 11:00 AM Discharge Slot: Final Diagnosis: Placement Information Referral Type:*Half-Way/SNF Referral ID:[id number] Provider Name:Marion Delgado Address 1:[address] [facility] [facility] Phone Number: Address 2: Fax Number: City:[place] Selection Factors: State:[place] Patient Contact Information Contact Name:WOODY Relationship:Son Address:[address] Work Phone: City:[facility] Phone: [facility] Code:[place] [address] Email: Financial Information Financial Class:Medicare Primary Plan Desc:MEDICARE INPATIENT Primary Plan Number:[id number] Secondary Plan Desc:[employer] [facility] Secondary Plan Number:[id number] Assessment Information LACE LACE Length of stay for Answers: 4-6 days current admission Acuity / Level of Answers: Yes Care: Did the patient have an inpatient admission? Comorbidities - select Answers: Other Notes: HTN all that apply # of Emergency department Answers: 1-2 visits in the last 6 months Social determinants Answers: Mental health diagnosis (anxiety, depression, pers onality disorders, etc.) Score: 12 Date Signed: 06/15/2018 02:05 PM Electronically Signed By:PAULIE Alfaro [facility] CM Progress Note CM Note CM Note Notes: Pt in for scheduled surgery for cecal mass, no therapies ordered. Anticipate she will dc home when medically stable, CM available for any changes. DC Plan: Independent Date Signed: 06/12/2018 04:17 PM Electronically Signed By:Dorie Olivas RN Case Management Discharge Plan Note Case Management Discharge Discharge Order Complete? Answers: Yes Patient to Obtain Answers: Other Notes: [facility] Medications Transportation Arranged Answers: Other Notes: [facility] w/c transport Transport will Pick (Date 06/15/2018 03:15 PM & Time) EMTALA Complete Answers: No Case Management Transport Answers: No Form Complete Faxed Final Orders Answers: Yes Agency/Facility Transfer Answers: Yes Report Printed & Faxed to Receiving Agency Family Notified Answers: No Discharge Comments Notes: CM discussed pts case w/ [facility]. Pt was originally planning on having her daughter in [place] come stay w/ her. Pt reports that she would prefer it to go to a SNF. Pt requested a referral made to [facility]. Referral sent. Pt has been accepted to [facility] for today. DC orders sent. TARUN Mckinnon will call to give report. CM available for changes. Plan[facility] Date Signed: 06/15/2018 02:09 PM Electronically Signed By:PAULIE Alfaro Intervention Information
--- NOTE | 2018-06-15 14:10 | ASMTDCNOTE ---
Case Management Discharge Discharge Order Complete? Answers: Yes Patient to Obtain Answers: Other Notes: [facility] Medications Transportation Arranged Answers: Other Notes: [facility] w[facility]c transport Transport will Pick (Date 06/15/2018 03:15 PM & Time) EMTALA Complete Answers: No Case Management Transport Answers: No Form Complete Faxed Final Orders Answers: Yes Agency/Facility Transfer Answers: Yes Report Printed & Faxed to Receiving Agency Family Notified Answers: No Discharge Comments Notes: CM discussed pts case w/ [facility]. Pt was originally planning on having her daughter in [place] come stay w/ her. Pt reports that she would prefer it to go to a SNF. Pt requested a referral made to [facility]. Referral sent. [facility]. DC orders sent. TARUN Mckinnon will call to give report. CM available for changes. Plan: [facility] Date Signed: 06/15/2018 02:09 PM Electronically Signed By:PAULIE Alfaro
--- NOTE | 2018-06-21 13:56 | GDS ---
[f rep st] DISCHARGE SUMMARY DISCHARGE DIAGNOSES: Colon cancer. SPECIAL TESTS: None. CONSULTATIONS: None. PROCEDURES: 1. Right partial colectomy. 2. Excision of an umbilical nodule. 3. Repair of umbilical hernia. INTRAOPERATIVE FINDINGS: The patient was found to have a 1 cm suspicious nodule and an umbilical her opal defect. She had a 2.5-3 cm tumor at the cecum at the appendiceal orifice. The appendix itself w as essentially withered up. HOSPITAL COURSE: This is a 77-year-old female who was admitted to the hospital to undergo planned la paroscopic-assisted right hemicolectomy and umbilical hernia repair. She tolerated the procedure wel l, and there were no complications. She did have acute blood loss anemia, however, her hematocrit st ayed stable at 28 following surgery. The day following surgery, her pain was well controlled and she was ambulating. She was advanced to a clear liquid diet. Three days after surgery, the patient was advanced to a light diet, which she tolerated well. She was ultimately discharged on postoperative day #4 to a rehab facility in good condition. At time of discharge, her pain was controlled on oral pain medication. She was passing gas. She had not yet passed a bowel movement. She was advised to follow up in our office in 2 weeks, sooner with any issues or concerns. At time of discharge, her pa thology report was still pending. /[id number]/MODL
== END 2018-06-15 15:29 | disposition home or self-care (01) | DRG 330 ==
LOC: F3N 06:02 → F3E 13:15
PROVIDERS: ADMIT Surgery; ATTEND Surgery
PROC: 0DBB4ZZ Excision of Ileum, Percutaneous Endoscopic Approach (ICD-10-PCS; principal; 2018-06-11 07:15)
PROC: 0DBK4ZZ Excision of Ascending Colon, Percutaneous Endoscopic Approach (ICD-10-PCS; principal; 2018-06-11 07:15)
PROC: 0DBH4ZZ Excision of Cecum, Percutaneous Endoscopic Approach (ICD-10-PCS; principal; 2018-06-11 07:15)
PROC: 0WQF4ZZ Repair Abdominal Wall, Percutaneous Endoscopic Approach (ICD-10-PCS; principal; 2018-06-11 07:15)
PROC: 0W3P4ZZ Control Bleeding in Gastrointestinal Tract, Percutaneous Endoscopic Approach (ICD-10-PCS; principal; 2018-06-11 07:15)
PROC: 8E0W4CZ Robotic Assisted Procedure of Trunk Region, Percutaneous Endoscopic Approach (ICD-10-PCS; principal; 2018-06-11 07:15)
DX: C18.0 Malignant neoplasm of cecum (principal); K42.9 Umbilical hernia without obstruction or gangrene; K91.61 Intraoperative hemorrhage and hematoma of a digestive system organ or structure complicating a digestive system procedure; D62 Acute posthemorrhagic anemia; D12.6 Benign neoplasm of colon, unspecified; I10 Essential (primary) hypertension; G47.33 Obstructive sleep apnea (adult) (pediatric)
CPT/HCPCS: J0694; J1170; J2250; J2370; J2704; J3010

== ENCOUNTER 2018-07-01 06:30 | Day surgery (SDC) | payer OTHER ==
[2018-07-01] MEDS ORDERED: BUPIVACAINE/EPI 0.5% 30 ML SDV ONE (06:57)
[2018-07-01] MEDS ORDERED: LR 1,000 ML IV ONE (06:58)
[2018-07-01] MEDS ORDERED: ceFAZolin 2 GM/DEXTROSE 100 ML IV ONE (06:58)
--- NOTE | 2018-07-01 07:51 | PDANEPAE ---
ANE History of Present Illness Colon CA ANE Past Medical History - Cardiovascular History Hx Hypertension: Yes Hx Arrhythmias: No Hx Chest Pain: No Hx Coronary Artery / Peripheral Vascular Disease: No Hx CHF / Valvular Disease: Yes Hx Palpitations: No Cardiovascular History Comment: denies chest pain, palp, family hx early onset - Pulmonary History Hx COPD: No Hx Asthma/Reactive Airway Disease: No Hx Recent Upper Respiratory Infection: No Hx Oxygen in Use at Home: Yes O2 in Use at Home (L/minute): 2 Hx Sleep Apnea: Yes Pulmonary History Comment: denies sob up 2 flights. PULM HTN. POS KRISTIE - O2 NOC W/CPAP - Neurologic History Hx Cerebrovascular Accident: No Hx Seizures: No Hx Dementia: No Neurologic History Comment: MIGRAINES. BACK & NECK SURGERIES - Endocrine History Hx Diabetes: No Endocrine History Comment: raynauds symptoms with beta blockers - Renal History Hx Renal Disorders: No - Liver History Hx Hepatic Disorders: No - Neurological & Psychiatric Hx Hx Neurological and Psychiatric Disorders: Yes Neurological / Psychiatric History Comment: depression- on meds. - Cancer History Hx Cancer: Yes Cancer History Comment: hx breast ca- lumpectomy, had radiation-intramammarily 2007. - Congenital Disorder History Hx Congenital Disorders: No - GI History Hx Gastrointestinal Disorders: No Gastrointestinal History Comment: n/v currently. possible polyp on colon when she had her CT done - Other Health History Other Health History: r shoulder rotator cuff tear r/t snowboarder accident. hx wrist fx. arthritis. r knee torn acl. - Chronic Pain History Chronic Pain: No (joints) - Surgical History Prior Surgeries: COLONOSCOPY & ENDOSCOPY. synovial cyst removal l4-5. r shoulder surgery x 4. l shoulder replacement. l lumpectomy. l wrist orif. ANE Review of Systems Review of Systems: ANE Patient History - Allergies Allergies/Adverse Reactions: ibuprofen [From Motrin] Allergy (Verified 05/28/18 17:08) HIGH BLOOD PRESSURE beta blockers Allergy (Uncoded 05/28/18 17:08) raynauds symptoms in hands bone cement Allergy (Uncoded 05/28/18 17:08) - Home Medications Home medications: home medication list seen and reviewed Home Medications: Escitalopram Oxalate [Lexapro] 10 mg PO DAILY 05/08/18 [Last Taken 06/11/18] Fluticasone Nasal [Flonase Nasal [place]] 1 spray EACHNARE HS 05/08/18 [Last Taken 06/10/18] Ibandronate Sodium [Boniva] 150 mg PO Q30D 05/08/18 [Last Taken 06/08/18] Lisinopril [Zestril 10 mg (*)] 10 mg PO DAILY 05/08/18 [Last Taken 06/11/18] Ferrous Sulfate [Ferrous Sulf 325 MG (*)] 325 mg PO DAILY 05/28/18 [Last Taken 06/09/18] Furosemide [Lasix 40 MG (*)] 40 mg PO DAILY 05/28/18 [Last Taken 06/10/18] Spironolactone [Aldactone 25 MG (*)] 25 mg PO DAILY 05/28/18 [Last Taken ] Azelastine [Astelin] 1 sprays EACHNARE BID 06/08/18 [Last Taken 06/10/18] Modafinil [Provigil 100 mg (*)] 50 - 100 mg PO DAILY PRN 06/08/18 [Last Taken ] - NPO status NPO Since - Liquids (Date): 06/30/18 NPO Since - Liquids (Time): 22:00 NPO Since - Solids (Date): 06/30/18 NPO Since - Solids (Time): 22:00 - Anes Hx Anes Hx: no prior problems - Smoking Hx Smoking Status: Never smoked - Family Anes Hx Family Hx Anesthesia Complications: none ANE Labs/Vital Signs - Vital Signs Blood Pressure: 127/64 Heart Rate: 72 Respiratory Rate: 15 O2 Sat (%): 97 Height: 152.4 cm Weight: 50.802 kg ANE Physical Exam - Airway Neck exam: FROM Mallampati Score: Class 2 Mouth exam: normal dental/mouth exam - Pulmonary Pulmonary: no respiratory distress - Cardiovascular Cardiovascular: regular rate and rhythym - ASA Status ASA Status: II ANE Anesthesia Plan Anesthesia Plan: MAC
[2018-07-01] MEDS ORDERED: LIDOCAINE 2% 2 ML INJ ONE (08:03)
[2018-07-01] MEDS ORDERED: PROPOFOL/EMULSION 500 MG/50 ML BOTTLE IV ONE (08:03)
[2018-07-01] MEDS ORDERED: LIDOCAINE 1% 300 MG/30 ML SDV ONE (08:27)
--- NOTE | 2018-07-01 09:07 | POSTANESTH ---
Post Anesthetic Evaluation Cardiovascular Status: Similar to Pre-Op Cond Respiratory Status: Similar to Pre-op Cond. Level of Consciousness/Mental Status: Alert and Oriented Pain Control: Adequate, Prn Tx Ordered Nausea/Vomiting Control: Adequate, Prn Tx Ordered Complications Possibly Related to Anesthesia: None Noted
[2018-07-01] MEDS ORDERED: fentaNYL 100 MCG/2 ML INJ IVP PRN (10:27)
[2018-07-01] MEDS ORDERED: NALOXONE HCL 0.4 MG/ML INJ IVP PRN (10:27)
[2018-07-01 10:37] VITALS: BP 120/72
--- NOTE | 2018-07-01 10:49 | POSTOPPROG ---
Post Op Note Date of Operation: 07/01/18 Surgeon: Laron Lemus Anesthesiologist: GIANA Anesthesia: IV Sedation Pre-op Diagnosis: COLON CANCER Post-op Diagnosis: SAME Indication: METASTATIC DISEASE Procedure: LEFT SUBCLAVIAN PORT WITH FLOURO Findings: GOOD POSITION AND FLOW Inf/Abcess present in the surg proc area at time of surgery?: No Depth: Deep Incisional (Fascial) EBL: Minimal Complications: 0
--- NOTE | 2018-07-05 20:55 | GOP ---
[f rep st] OPERATIVE REPORT DATE OF OPERATION: 07/01/2018 SURGEON: Laron Lemus MD PREOPERATIVE DIAGNOSIS: Colon cancer. POSTOPERATIVE DIAGNOSIS: Colon cancer. PROCEDURE PERFORMED: Left subclavian port placement with fluoroscopic guidance. FINDINGS: GOOD POSITION AND FLOW DESCRIPTION OF PROCEDURE: The patient was taken to the operating room where she received satisfactory IV sedation and monitored anesthesia care. She was placed in the supine position prepped and draped in the usual sterile fashion and was then tilted in Trendelenburg. A single stick was made in the left subclavian vein. Guidewire was introduced. Position was confirmed with fluoroscopy. A subcu pocket was made in the 2nd intercostal space. Port tubing was passed from that pocket to the subclavian intro site and trimmed to the appropriate length using fluoroscopic guidance. It was then introduced via the introducer sheath and dilator system into the right atrium. Good backflow was achieved. The catheter was flushed with heparin saline and secured to the fascia with 3-0 Vicryl. Pocket was closed with 3-0 Vicryl for the subcutaneous tissue and a 4-0 Prolene subcuticular stitch for the skin. The entrance site was closed with Prolene mattress suture. Wounds were infiltrated with 0.5% Marcaine. She tolerated the procedure well. She was taken to the recovery room in good condition. No complications. Copy requested to: Dr. Cristine Beard /[id number]/MODL MTDD
== END 2018-07-01 11:15 | disposition home or self-care (01) ==
LOC: FSGY 06:30
PROVIDERS: ATTEND Surgery
PROC: 02H633Z Insertion of Infusion Device into Right Atrium, Percutaneous Approach (ICD-10-PCS; principal; 2018-07-01 08:00)
DX: C18.9 Malignant neoplasm of colon, unspecified (principal)
CPT/HCPCS: C1788; J0690; J1642; J2704

== ENCOUNTER 2018-07-21 05:35 | Day surgery (SDC) | payer OTHER ==
[2018-07-21 07:13] LABS: PLATELET COUNT 200 10^3/uL (150-400)
--- NOTE | 2018-07-21 07:14 | PDPROPOC ---
Sedation Plan of Care Sedation Plan of Care: vital signs stable, mental status noted, patient educated of risks, benefits, alternatives, patient can tolerate sedation ASA Classification: ASA 2 Mallampati Score: Class 2 Mallampati Reference Image: Patient passed 3-3-2 rule?: Yes
[2018-07-21] MEDS ORDERED: EPOPROSTENOL SODIUM (ARGININE) 300,000 NG in NS 100 ML IV ONE (07:16)
[2018-07-21] MEDS ORDERED: LIDOCAINE 1% 300 MG/30 ML SDV ONE (07:17)
[2018-07-21 07:23] LABS: INR 0.97 (0.83-1.16); PROTIME(PATIENT) 12.5 SEC (12.0-15.0)
--- NOTE | 2018-07-21 07:30 | SUROPNOTE ---
SALLY Operative Report - Surgery PROCEDURE PERFORMED: Diagnostic right heart catheterization with ultrasound guided vascular access and acute vasoreactivity testing PREOPERATIVE DIAGNOSIS: Pulmonary Arterial Hypertension. POSTOPERATIVE DIAGNOSIS: Pulmonary Arterial Hypertension. ATTENDING PHYSICIAN: Jorge A Milton MD ANESTHESIA: 5 mL of 2% lidocaine injected locally. COMPLICATIONS: None. ESTIMATED BLOOD LOSS: None. PROCEDURE DESCRIPTION: Informed consent was obtained prior to the procedure. A time-out was performed prior to the procedure, confirming the patient's name, procedure type and procedure location. The patient was prepped and draped in the usual sterile fashion, exposing the right neck. The right internal jugular vein was visualized with real-time ultrasound guidance, and the skin above the right internal jugular was anesthetized with 5 mL of 2% lidocaine. The right internal jugular vein was then accessed with 1 stick without arterial puncture under direct real-time ultrasound guidance. Position in the venous system was confirmed with the ultrasound and under fluoroscopy, and a 7-[place]ic "Precision" micropuncture kit was used to place a 7-[place]ic lumen introducer sheath via modified Seldinger technique. A 7-[place]ic [place] catheter was then advanced through the sheath into the right atrium, right ventricle, pulmonary artery and pulmonary artery occlusion pressure positions. Hemodynamic measurements and saturation measurements were obtained in the usual fashion. Following these measurements, the patient was administered epoprostenol starting at 2 ng/kg/min and increased in serial increments up to 12 ng/kg/min and repeat measurements were obtained. Following these measurements, the [place] catheter was removed , followed by removal of the sheath, and hemostasis was achieved. There were no complications from the procedure. PROCEDURE FINDINGS: Baseline Veletri (epoprostenol) Units RA [a/v (mean)] 10/12/10 NA mmHg RV [Sys/Parsons (RVEDP)] 40/-2/10 NA mmHg PA [Sys/Parsons (Mean)] 42/14 (25) 44/9 (26) mmHg PAOP [End Exp (Mean)] 14 (14) 14 (14) mmHg TD CO (CI) 4.43 (3.06) NA L/min (L/min/m2) [place] (CI) 3.23 (2.23) 4.51 (3.11) L/min (L/min/m2) TD PVR 2.48 NA LAND [place] PVR 3.43 2.43 LAND PA sat% 72.5 77 % SpO2 sat% 100 98 % Venous Oxygen Saturation SaO2: SVC PA 72% 72.5% IMPRESSION: 77 year old female with mild pulmonary arterial hypertension. Clinically improved after IV iron and diuresis # Pulmonary arterial hypertension # No evidence of acute vasoreactivity to epoprostenol # No evidence of left to right shunt PLAN: # Continue current adjunctive treatments # Continue CPAP for KRISTIE # Return to clinic for follow-up in 3 months. # All questions answered. Jorge A Milton MD Pulmonary, Critical Care and Sleep Medicine. [facility]
--- NOTE | 2018-07-21 07:34 | PDGENHP ---
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 Previously admitted with decompensated RV failure and PH as well as anemia. She underwent IV iron transfusion, diuresis and is somewhat better but still symptomatic Pertinent Past, Social, Family History: MED HX. colon cancer, PAH. FAM HX. PAH, sister. SOC HX. lives in [place], retired Relevant Physical Exam: NAD, OP clear, CN 2-12 GI, lungs clear, trace edema Cardiorespiratory Assessment: BRANNON and PAH. # proceed with RHC. all questions answered
== END 2018-07-21 09:05 | disposition home or self-care (01) ==
LOC: FCATH 05:35
PROVIDERS: ATTEND Internal Medicine Pulmonary Disease
PROC: 4A023N6 Measurement of Cardiac Sampling and Pressure, Right Heart, Percutaneous Approach (ICD-10-PCS; principal; 2018-07-21)
DX: I27.20 Pulmonary hypertension, unspecified (principal)
CPT/HCPCS: J1325; J1644

== ENCOUNTER → 2018-09-11 | Outpatient (CLI) | payer OTHER | LOC: FCPNEURO 20:00 ==